=== PATIENT | male | born 1950 | race Caucasian/White ===

== ENCOUNTER → 2018-05-05 08:41 | Outpatient (CLI) | payer MEDICARE, OTHER, SELFPAY ==
[2018-05-11 00:51] LABS: Testosterone Free 133.1 pg/mL (35.0-155.0); Testosterone Total 636 ng/dL (250-1100)
== END ==
PROVIDERS: PCP Family Medicine; Visit Provider Family Medicine
DX: E34.9 Endocrine disorder, unspecified (principal)
CPT/HCPCS: 36415; 84402; 84403

== ENCOUNTER → 2018-05-06 10:06 | Outpatient (CLI) | payer MEDICARE, OTHER, SELFPAY ==
[2018-05-06 11:27] LABS: Hemoglobin A1C% w Est Avg Glu 7.9 % (4.0-6.0)
[2018-05-06 11:42] LABS: BUN Creatinine Ratio 16.9 (6-22); Blood Urea Nitrogen 27 mg/dL (9-20); Calcium 9.7 mg/dL (8.4-10.2); Carbon Dioxide 22 mmol/L (22-32); Chloride 108 mmol/L (98-107); Estimated Glomerular Filt Rate 43.6 mL/min (>60); Glucose 118 mg/dL (80-110); HEMOLYSIS < 15 (0-50); Potassium 4.9 mmol/L (3.4-5.1); Sodium 142 mmol/L (137-145)
== END ==
PROVIDERS: PCP Family Medicine; Visit Provider Family Medicine
DX: E34.9 Endocrine disorder, unspecified (principal); E11.9 Type 2 diabetes mellitus without complications
CPT/HCPCS: 80048; 83036

== ENCOUNTER → 2018-09-22 09:08 | Outpatient (CLI) | payer MEDICARE, OTHER, SELFPAY | PROVIDERS: PCP Family Medicine; Visit Provider Family Medicine | DX: R31.9 Hematuria, unspecified (principal) | CPT/HCPCS: 87086 ==

== ENCOUNTER → 2018-09-22 09:59 | Outpatient (CLI) | payer MEDICARE, OTHER, SELFPAY ==
--- NOTE | 2018-09-22 10:17 | DI.CT.S_ITS ---
PROCEDURE: CT KIDNEY URETER BLADDER (KUB) INDICATIONS: A 67-year old man with history of right nephrectomy and partial left nephrectomy. Unable to urinate for 36 hours. Complaints of penile pain. TECHNIQUE: Noncontrast 5 mm thick sections acquired from the diaphragms to the symphysis. 5 mm thick coronal and sagittal reformats were then performed. For radiation dose reduction, the following was used: automated exposure control, adjustment of mA and/or kV according to patient size. COMPARISON: [facility], US, RETROPERITONEAL SONOGRAM, 12/23/2011, 14:26. [facility], US, US RENAL, 07/05/2016, 16:11. [facility], US, RENAL COMPLETE, 02/04/2008, 12:50. [facility], CT THORAX/ABD/PELVIS W/O CONTRAST, 06/22/2006, 13:18. [facility], MRI ABDOMEN W/W/O CONTRAST, 05/15/2006, 13:47. [facility], CT ABDOMEN/PELVIS WITHOUT CONTRAST, 06/24/2006, 11:37. FINDINGS: Image quality: Excellent. Lung bases: Lung bases are clear. Heart size is normal. Urinary system: Right kidney is surgically absent consistent with nephrectomy. Left kidney is normal in size. No renal stones were hydronephrosis. There is a 1.4 cm diameter exophytic lobular contour in the inferior pole of the left kidney. Mild left perinephric standing is present. The left ureter appears non-dilated throughout their expected courses. No left ureter stone. Bladder wall appears thickened although bladder is contracted; no calcified bladder stones. There is calcification in the penile urethra. Other solid organs: Liver is normal in size. Gallbladder is normal. Pancreas is normal in contours. Spleen is normal in size. There is a 1.1 x 1.7 cm right adrenal nodule with a CT density 8.5 HU, compatible with a benign adenoma. Peritoneum and bowel: Unenhanced bowel loops demonstrate normal wall thickness and caliber. No free fluid or air. Nodes and vessels: No retroperitoneal or mesenteric adenopathy by size criteria. Aorta and inferior vena cava are normal in caliber. Abdominal wall: No ventral hernias. Pelvis: No free pelvic fluid. No inguinal adenopathy. Fat containing inguinal hernias are noted bilaterally. Bones: No suspicious bony lesions. No vertebral body compression fractures. IMPRESSION: 1. Right nephrectomy. 2. A 1.4 cm exophytic lobular contour involving the interpole of the left kidney. The patient had partial nephrectomy in the area in 2005. Differential diagnoses include scar, complex cysts or recurrent mass. Followup renal ultrasound or MRI is suggested. 3. No renal stone or hydronephrosis. 4. Appearance of bladder wall thickening with contracted urinary bladder. Differential diagnoses include cystitis versus artifact. 5. Calcification in the penile urethra. In this patient with penile pain, urethral stones are suspected. 6. Right adrenal nodule compatible with adrenal adenoma. Dictated by: Luz Allen M.D. on 09/22/2018 at 10:45 Approved by: Luz Allen M.D. on 09/22/2018 at 11:08
== END ==
PROVIDERS: PCP Family Medicine; Visit Provider Family Medicine
DX: N48.89 Other specified disorders of penis (principal); R31.9 Hematuria, unspecified; E27.9 Disorder of adrenal gland, unspecified; Z90.5 Acquired absence of kidney
CPT/HCPCS: 74176; 87077; 87086; 87186

== ENCOUNTER → 2018-10-07 08:17 | Outpatient (CLI) | payer MEDICARE, OTHER, SELFPAY ==
[2018-10-07 08:21] LABS: RBC Urine None Seen (0-5/HPF); WBC Urine None Seen (0-5/HPF)
[2018-10-07 08:59] LABS: Appearance Urine UA CLEAR; Bilirubin Urine UA NEGATIVE (NEGATIVE); Color Urine UA YELLOW; Glucose Urine UA NEGATIVE (Normal); Ketones Urine UA NEGATIVE (NEGATIVE); Leukocyte Esterase Urine UA NEGATIVE (NEGATIVE); Nitrite Urine UA NEGATIVE (Negative); Occult Blood Urine UA NEGATIVE (Negative); Protein Urine UA TRACE (Negative); Urobilinogen Urine UA 0.2 E.U./dL (0.2); pH Urine UA 5.5 (4.5-8.0)
[2018-10-07 09:16] LABS: Bacteria Urine Occasional (0-1); Culture Indicated Urine Cult Not Indicated; Mucus Urine 1+ (Negative)
== END ==
PROVIDERS: PCP Family Medicine; Visit Provider Family Medicine
DX: R30.0 Dysuria (principal)
CPT/HCPCS: 81001

== ENCOUNTER → 2019-01-19 08:16 | Outpatient (CLI) | payer MEDICARE, OTHER, SELFPAY ==
[2019-01-19 09:12] LABS: Add Manual Diff / Slide Review NO; Basophils Absolute Auto 100 /uL (0-100); Eosinophils Absolute Auto 200 /uL (0-450); Hematocrit 47.6 % (41-53); Hemoglobin 15.9 g/dL (13.5-17.5); Lymphocytes Absolute Auto 1500 /uL (1100-4500); Lymphocytes Percent Auto 28.5 % (25-40); Mean Corpuscular HGB Conc 33.3 % (30-36); Mean Corpuscular Hemoglobin 29.3 PG (26-34); Mean Corpuscular Volume 87.9 fL (80-100); Monocytes Absolute Auto 300 /uL (0-900); Monocytes Percent Auto 6.5 % (3-14); Neutrophils Absolute Auto 3200 /uL (1500-7000); Platelet Count 208 X10^3/uL (150-400); Red Blood Cell Count 5.42 X10^6/uL (4.5-5.9); Red Cell Distribution Width 14.8 % (11.6-14.8); White Blood Cell Count 5.3 X10^3/uL (4.5-11.0)
[2019-01-19 09:38] LABS: Alanine Aminotransferase 31 IU/L (21-72); Albumin 4.4 g/dL (3.5-5.0); Albumin Globulin Ratio 1.3 (1.0-2.8); Alkaline Phosphatase 88 U/L (38-126); Aspartate Aminotransferase 24 IU/L (17-59); BUN Creatinine Ratio 22.4 (6-22); Bilirubin Total 0.5 mg/dL (0.2-1.3); Blood Urea Nitrogen 38 mg/dL (9-20); Calcium 9.4 mg/dL (8.4-10.2); Carbon Dioxide 20 mmol/L (22-32); Chloride 111 mmol/L (98-107); Cholesterol 216 mg/dL (140-199); Estimated Glomerular Filt Rate 40.5 mL/min (>60); Globulin 3.3 g/dL (1.7-4.1); Glucose 107 mg/dL (80-110); HDL Cholesterol 33 mg/dL (40-60); HEMOLYSIS < 15 (0-50); LDL Cholesterol Calculated 157 mg/dL (<100); Potassium 4.6 mmol/L (3.4-5.1); Sodium 141 mmol/L (137-145); Total Protein 7.7 g/dL (6.3-8.2); Triglycerides 128 mg/dL (35-150)
[2019-01-19 09:49] LABS: Hemoglobin A1C% w Est Avg Glu 8.6 % (4.0-6.0)
[2019-01-19 09:58] LABS: Creatinine Urine Random 69.1 mg/dL
[2019-01-19 10:02] LABS: Microalbumi Creatinin Ratio Ur 150.5 ug/mg CR (<30); Microalbumin Urine Random 10.4 mg/dL (0-1.6)
[2019-01-19 10:30] LABS: Thyroid Stimulating Hormone 2.12 uIU/mL (0.47-4.68)
== END ==
PROVIDERS: PCP Family Medicine; Visit Provider Family Medicine
DX: E11.9 Type 2 diabetes mellitus without complications (principal); E78.2 Mixed hyperlipidemia; I10 Essential (primary) hypertension; N19 Unspecified kidney failure; Z12.5 Encounter for screening for malignant neoplasm of prostate; Z68.38 Body mass index [BMI] 38.0-38.9, adult
CPT/HCPCS: 36415; 80053; 80061; 82043; 82570; 83036; 84443; 85025; G0103

== ENCOUNTER → 2019-02-17 08:14 | Outpatient (CLI) | payer MEDICARE, OTHER, SELFPAY ==
[2019-02-17 09:02] LABS: Hemoglobin A1C% w Est Avg Glu 8.2 % (4.0-6.0)
[2019-02-17 09:54] LABS: Blood Urea Nitrogen 24 mg/dL (9-20); Calcium 8.9 mg/dL (8.4-10.2); Carbon Dioxide 22 mmol/L (22-32); Chloride 109 mmol/L (98-107); Estimated Glomerular Filt Rate 43.5 mL/min (>60); Glucose 131 mg/dL (80-110); HEMOLYSIS < 15 (0-50); Potassium 4.1 mmol/L (3.4-5.1); Sodium 141 mmol/L (137-145)
[2019-02-20 15:46] LABS: PSA Free % 25 % (calc) (> 25); PSA, Total 1.2 ng/mL (< 4.1)
== END ==
PROVIDERS: PCP Family Medicine; Visit Provider Family Medicine
DX: E11.9 Type 2 diabetes mellitus without complications (principal); Z12.5 Encounter for screening for malignant neoplasm of prostate
CPT/HCPCS: 36415; 80048; 83036; 84153; 84154

== ENCOUNTER → 2019-02-25 10:23 | Outpatient (CLI) | payer MEDICARE, OTHER, SELFPAY ==
--- NOTE | 2019-02-25 10:26 | DI.US.S_ITS ---
PROCEDURE: US RENAL COMPLETE INDICATIONS: RENAL MASS TECHNIQUE: Real-time scanning was performed of the kidneys and bladder, with image documentation. COMPARISON: [facility], US, ABDOMEN COMPLETE, 08/15/2010, 9:03. [facility], CT, CT KIDNEY URETER BLADDER (KUB), 09/22/2018, 10:03. [facility], US, RENAL COMPLETE, 09/19/2009, 9:22. FINDINGS: Kidneys: The right kidney is surgically absent. No abnormalities can be seen within the renal fossa. The left kidney measures 11.8 cm in length, with a cortical thickness measurement of 1.7 cm. No hydronephrosis or renal stones are seen. The left kidney demonstrates a slightly irregular contour. At the superior pole of the left kidney, there is a 2.9 cm area of focal prominence with decreased echogenicity, with normal vascularity. At the inferior pole of the left kidney, there is an exophytic focus measuring 16 mm with calcification. No abnormal vascularity can be seen at this site. Bladder: Pre-void bladder volume is 159 mL. Post-void residual is 18 mL. Pre-void images demonstrate no intraluminal masses or stones. On pre-void images, the left ureteral jet can be seen with color Doppler interrogation. (Of note, ureteral jets may not be detectable in up to 25% of cases due to insufficient differences in specific gravity between ureteral and bladder urine). Miscellaneous: No free pelvic fluid. IMPRESSION: At the superior pole the left kidney, there is a 2.9 cm irregular area. This may be simply secondary to lobulation. However, please consider a dedicated renal mass protocol CT in this patient with this history. At the inferior pole of the left kidney, there is focal irregularity seen with calcification. This is felt most likely to be postsurgical in nature. Status post right nephrectomy. No abnormalities can be seen in the nephrectomy bed. Small postvoid residual, 18 cc. Dictated by: Quincy Gregory M.D. on 02/25/2019 at 11:46 Approved by: Quincy Gregory M.D. on 02/25/2019 at 11:50
== END ==
PROVIDERS: PCP Family Medicine; Visit Provider Family Medicine
DX: N28.89 Other specified disorders of kidney and ureter (principal); Z90.5 Acquired absence of kidney
CPT/HCPCS: 76770

== ENCOUNTER → 2019-08-18 08:07 | Outpatient (CLI) | payer MEDICARE, OTHER, SELFPAY ==
[2019-08-18 08:54] LABS: Hemoglobin A1C% w Est Avg Glu 9.1 % (4.0-6.0)
[2019-08-18 09:34] LABS: BUN Creatinine Ratio 13.9 (6-22); Blood Urea Nitrogen 25 mg/dL (9-20); Calcium 9.4 mg/dL (8.4-10.2); Carbon Dioxide 22 mmol/L (22-32); Chloride 106 mmol/L (98-107); Estimated Glomerular Filt Rate 37.9 mL/min (>60); Glucose 304 mg/dL (80-110); HEMOLYSIS < 15 (0-50); Potassium 4.3 mmol/L (3.4-5.1); Sodium 140 mmol/L (137-145)
== END ==
PROVIDERS: PCP Family Medicine; Visit Provider Family Medicine
DX: E11.9 Type 2 diabetes mellitus without complications (principal)
CPT/HCPCS: 36415; 80048; 83036

== ENCOUNTER → 2019-11-23 08:11 | Outpatient (CLI) | payer MEDICARE, OTHER, SELFPAY ==
[2019-11-23 08:49] LABS: BUN Creatinine Ratio 17.6 (6-22); Blood Urea Nitrogen 37 mg/dL (9-20); Calcium 8.8 mg/dL (8.4-10.2); Carbon Dioxide 18 mmol/L (22-32); Chloride 112 mmol/L (98-107); Estimated Glomerular Filt Rate 31.8 mL/min (>60); Glucose 107 mg/dL (80-110); HEMOLYSIS 15 (0-50); Potassium 4.9 mmol/L (3.4-5.1); Sodium 140 mmol/L (137-145)
== END ==
PROVIDERS: PCP Family Medicine; Visit Provider Family Medicine
DX: E11.9 Type 2 diabetes mellitus without complications (principal)
CPT/HCPCS: 36415; 80048; 83036

== ENCOUNTER → 2019-12-17 07:48 | Outpatient (CLI) | payer MEDICARE, OTHER, SELFPAY ==
[2019-12-21 11:11] LABS: Testosterone Total 505 ng/dL (250-1100)
== END ==
PROVIDERS: PCP Family Medicine; Visit Provider Nurse Practitioner
DX: E29.1 Testicular hypofunction (principal)
CPT/HCPCS: 36415; 84402; 84403

== ENCOUNTER → 2020-01-20 08:18 | Outpatient (CLI) | payer MEDICARE, OTHER, SELFPAY ==
[2020-01-20 09:00] LABS: Hemoglobin A1C% w Est Avg Glu 8.5 % (4.0-6.0)
[2020-01-20 09:20] LABS: BUN Creatinine Ratio 16.3 (6-22); Blood Urea Nitrogen 31 mg/dL (9-20); Calcium 9.1 mg/dL (8.4-10.2); Carbon Dioxide 22 mmol/L (22-32); Chloride 113 mmol/L (98-107); Estimated Glomerular Filt Rate 35.5 mL/min (>60); Glucose 104 mg/dL (80-110); HEMOLYSIS < 15 (0-50); Potassium 4.9 mmol/L (3.4-5.1); Sodium 141 mmol/L (137-145)
== END ==
PROVIDERS: PCP Family Medicine; Referring Provider Family Medicine; Visit Provider Family Medicine
DX: N19 Unspecified kidney failure (principal); E11.9 Type 2 diabetes mellitus without complications; Z68.38 Body mass index [BMI] 38.0-38.9, adult
CPT/HCPCS: 36415; 80048; 83036

== ENCOUNTER → 2020-04-19 07:46 | Outpatient (CLI) | payer MEDICARE, OTHER, SELFPAY ==
[2020-04-19 08:06] LABS: RBC Urine None Seen (0-5/HPF); WBC Urine None Seen (0-5/HPF)
[2020-04-19 09:07] LABS: Appearance Urine UA CLEAR; Bilirubin Urine UA NEGATIVE (NEGATIVE); Color Urine UA YELLOW; Glucose Urine UA NEGATIVE (Negative); Ketones Urine UA NEGATIVE (NEGATIVE); Leukocyte Esterase Urine UA NEGATIVE (NEGATIVE); Nitrite Urine UA NEGATIVE (Negative); Occult Blood Urine UA TRACE-INTACT (Negative); Protein Urine UA 1+ (Negative); Specific Gravity Urine UA 1.015 (1.000-1.035); Urobilinogen Urine UA 0.2 E.U./dL (0.2); pH Urine UA 5.5 (4.5-8.0)
[2020-04-19 09:17] LABS: Hemoglobin A1C% w Est Avg Glu 8.6 % (4.0-6.0)
[2020-04-19 09:18] LABS: BUN Creatinine Ratio 13.2 (6-22); Bacteria Urine Occasional (0-1); Blood Urea Nitrogen 25 mg/dL (9-20); Calcium 9.5 mg/dL (8.4-10.2); Carbon Dioxide 19 mmol/L (22-32); Chloride 110 mmol/L (98-107); Culture Indicated Urine Cult Not Indicated; Estimated Glomerular Filt Rate 35.8 mL/min (>60); Glucose 135 mg/dL (80-110); HEMOLYSIS < 15 (0-50); Potassium 4.9 mmol/L (3.4-5.1); Sodium 140 mmol/L (137-145); Squamous Epithelial Cell Urine 0-1 /HPF (0-5/HPF)
[2020-04-19 09:31] LABS: Add Manual Diff / Slide Review NO; Basophils Absolute Auto 100 /uL (0-100); Eosinophils Absolute Auto 100 /uL (0-450); Eosinophils Percent Auto 2.3 % (2-4); Hematocrit 49.1 % (41-53); Hemoglobin 16.6 g/dL (13.5-17.5); Lymphocytes Absolute Auto 1500 /uL (1100-4500); Lymphocytes Percent Auto 25.3 % (25-40); Mean Corpuscular HGB Conc 33.7 % (30-36); Mean Corpuscular Hemoglobin 30.3 PG (26-34); Mean Corpuscular Volume 89.8 fL (80-100); Monocytes Absolute Auto 300 /uL (0-900); Monocytes Percent Auto 5.8 % (3-14); Neutrophils Absolute Auto 3900 /uL (1500-7000); Neutrophils Percent Auto 65.6 % (50-75); Platelet Count 211 X10^3/uL (150-400); Red Blood Cell Count 5.46 X10^6/uL (4.5-5.9); Red Cell Distribution Width 14.6 % (11.6-14.8)
[2020-04-19 09:39] LABS: Creatinine Urine Random 85.5 mg/dL
[2020-04-19 09:40] LABS: Magnesium 1.9 mg/dL (1.6-2.3); Phosphorous 3.3 mg/dL (2.3-3.7); Uric Acid 7.6 mg/dL (3.5-8.5)
[2020-04-19 09:54] LABS: Vitamin D 25 Hydroxy (D3) 28.4 ng/mL (30.0-100.0)
[2020-04-19 10:13] LABS: Microalbumi Creatinin Ratio Ur 397.6 ug/mg CR (<30)
[2020-04-20 07:08] LABS: Parathyroid Hormone Int 52 pg/mL (15-65)
== END ==
PROVIDERS: PCP Family Medicine; Referring Provider Internal Medicine Nephrology; Visit Provider Internal Medicine Nephrology
DX: N18.3 Chronic kidney disease, stage 3 (moderate) (principal); D63.1 Anemia in chronic kidney disease; E83.41 Hypermagnesemia; E83.9 Disorder of mineral metabolism, unspecified; N39.0 Urinary tract infection, site not specified; E11.9 Type 2 diabetes mellitus without complications
CPT/HCPCS: 36415; 80048; 81001; 82043; 82306; 82570; 83036; 83735; 83970; 84100; 84550; 85025

== ENCOUNTER → 2020-07-04 07:32 | Outpatient (CLI) | payer MEDICARE, OTHER, SELFPAY ==
[2020-07-04 16:29] LABS: BUN Creatinine Ratio 16.6 (6-22); Blood Urea Nitrogen 35 mg/dL (9-20); Calcium 9.1 mg/dL (8.4-10.2); Carbon Dioxide 18 mmol/L (22-32); Chloride 109 mmol/L (98-107); Estimated Glomerular Filt Rate 31.5 mL/min (>60); Glucose 294 mg/dL (80-110); HEMOLYSIS < 15 (0-50); Phosphorous 4.2 mg/dL (2.3-3.7); Sodium 137 mmol/L (137-145); Uric Acid 8.4 mg/dL (3.5-8.5)
[2020-07-04 16:55] LABS: Potassium 5.4 mmol/L (3.4-5.1)
[2020-07-04 17:20] LABS: Vitamin D 25 Hydroxy (D3) 41.1 ng/mL (30.0-100.0)
[2020-07-05 07:12] LABS: Parathyroid Hormone Int 85 pg/mL (15-65)
== END ==
PROVIDERS: PCP Family Medicine; Referring Provider Family Medicine; Visit Provider Family Medicine
DX: N18.3 Chronic kidney disease, stage 3 (moderate) (principal); E11.9 Type 2 diabetes mellitus without complications
CPT/HCPCS: 36415; 80048; 82306; 83970; 84100; 84550

== ENCOUNTER 2020-07-11 13:18 | Emergency (ER) | payer MEDICARE, OTHER, SELFPAY ==
[2020-07-11] VITALS (22 sets, daily range): BP systolic 120–205; BP diastolic 56–93; PULSE 67–86; RESP 18–39; TEMP 36.8; O2SAT 96–99
--- NOTE | 2020-07-11 13:32 | DI.CT.S_ITS ---
PROCEDURE: CT HEAD/BRAIN WO CON INDICATIONS: right sided weakness TECHNIQUE: Noncontrast 4.5 mm thick angled axial sections acquired from the foramen magnum to the vertex, with coronal and sagittal reformats. For radiation dose reduction, the following was used: automated exposure control, adjustment of mA and/or kV according to patient size. COMPARISON: [facility], CT, HEAD WITHOUT CONTRAST, 08/24/2010, 15:01. FINDINGS: Image quality: Excellent. CSF spaces: Basal cisterns are patent. No extra-axial fluid collections. The ventricles are symmetric in size and shape. Brain: No intracranial bleeds hypodensity involving the left occipital lobe measuring approximately 4.0 x 2.8 cm, suspicious for acute ischemia although cannot exclude underlying mass lesion with vasogenic edema There is cerebral volume loss for age, with resultant ventricular and sulcal prominence. There are periventricular and deep white matter chronic small vessel ischemic changes. There is intracranial internal carotid artery atherosclerosis. Skull and face: Calvarium and visualized facial bones appear intact, without suspicious lesions. Sinuses: Visualized sinuses and mastoids are clear. IMPRESSION: New area of hypoattenuation involving the left occipital lobe presumably acute ischemia although recommend follow up with head CT or MRI after the patient's acute episode has resolved to exclude underlying mass lesion as discussed above. Dictated by: Marky Arroyo M.D. on 07/11/2020 at 14:12 Approved by: Marky Arroyo M.D. on 07/11/2020 at 14:15
--- NOTE | 2020-07-11 13:32 | DI.RAD.S_ITS ---
PROCEDURE: XR CHEST 1V INDICATIONS: Possible stroke TECHNIQUE: One view of the chest was acquired. COMPARISON: [facility], , CHEST 1 VIEW, 01/27/2011, 15:20. FINDINGS: Surgical changes and devices: None. Lungs and pleura: Lungs are clear. No pleural effusions or pneumothorax. Mediastinum: Mediastinal contours appear normal. Heart size is normal. Bones and chest wall: No suspicious bony lesions. Overlying soft tissues appear unremarkable. IMPRESSION: No acute disease Dictated by: Marky Arroyo M.D. on 07/11/2020 at 14:15 Approved by: Marky Arrooy M.D. on 07/11/2020 at 14:16
[2020-07-11 13:53] LABS: Add Manual Diff / Slide Review NO; Basophils Absolute Auto 100 /uL (0-100); Basophils Percent Auto 0.7 % (0-2); Eosinophils Absolute Auto 0 /uL (0-450); Eosinophils Percent Auto 0.4 % (2-4); Hematocrit 44.3 % (41-53); Hemoglobin 14.7 g/dL (13.5-17.5); Lymphocytes Absolute Auto 1000 /uL (1100-4500); Lymphocytes Percent Auto 10.7 % (25-40); Mean Corpuscular HGB Conc 33.1 % (30-36); Mean Corpuscular Hemoglobin 29.9 PG (26-34); Mean Corpuscular Volume 90.2 fL (80-100); Monocytes Absolute Auto 400 /uL (0-900); Monocytes Percent Auto 4.3 % (3-14); Neutrophils Absolute Auto 7600 /uL (1500-7000); Neutrophils Percent Auto 83.9 % (50-75); Platelet Count 210 X10^3/uL (150-400); Red Blood Cell Count 4.91 X10^6/uL (4.5-5.9); Red Cell Distribution Width 15.1 % (11.6-14.8); White Blood Cell Count 9.1 X10^3/uL (4.5-11.0)
[2020-07-11 13:59] LABS: INR 1.1 (0.9-1.3); Prothrombin Time 12.2 SECONDS (10.1-12.7)
[2020-07-11 14:01] LABS: PTT Partial Thromboplastin Tim 39 SECONDS (26.4-36.2)
[2020-07-11 14:03] LABS: Alanine Aminotransferase 15 IU/L (<50); Albumin 3.9 g/dL (3.5-5.0); Albumin Globulin Ratio 1.3 (1.0-2.8); Alkaline Phosphatase 90 U/L (38-126); Aspartate Aminotransferase 18 IU/L (17-59); BUN Creatinine Ratio 17.7 (6-22); Bilirubin Total 0.7 mg/dL (0.2-1.3); Blood Urea Nitrogen 41 mg/dL (9-20); Calcium 8.5 mg/dL (8.4-10.2); Carbon Dioxide 14 mmol/L (22-32); Chloride 108 mmol/L (98-107); Creatine Kinase 111 U/L (55-170); Estimated Glomerular Filt Rate 28.4 mL/min (>60); Glucose 351 mg/dL (80-110); HEMOLYSIS 24 (0-50); Sodium 133 mmol/L (137-145); Total Protein 6.9 g/dL (6.3-8.2)
--- NOTE | 2020-07-11 14:06 | PC.NURSE ---
Pt states 07/10 around 2330 started to get R arm numbess and tingling and R eye blurriness. Pt diabetic and thought sugar was low and had something to eat and went to bed. 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 son states speech is at baseline. pt complains of R eye blurriness that is better when squinting which is his only sx that has not resolved since last night. passed swallow.
[2020-07-11 14:14] LABS: Troponin I < 0.012 ng/mL (0.01-0.034)
[2020-07-11 14:18] LABS: CKMB % Relative Index 1.2 % (1.5-5.0); Creatine Kinase MB 1.32 ng/mL (<2.37)
[2020-07-11 14:23] LABS: Potassium 5.6 mmol/L (3.4-5.1)
--- NOTE | 2020-07-11 15:30 | ED_ITS ---
HPI - Neuro Symptoms/Deficit <Maikel Frankel MD - Last Filed: 07/12/20 17:38> General Chief Complaint: Neuro Symptoms/Deficit Stated Complaint: DIZZY,LAST NIGHT RIGHT SIDE BODY WENT NUMB Time Seen by Provider: 07/11/20 13:59 Source: patient and family Mode of arrival: Ambulatory History of Present Illness HPI Narrative: Patient here with son. Complains of an onset 11:30 p.m. last night of right-sided tingling which has resolved. Had dizziness which is improving. However also had blurry vision in the right eye. No slurred speech or facial droop. Patient unable to see right temporal field of the right eye. Patient has history of renal cancer. Right kidney removed in the has half of his left kidney. Patient has history of diabetes and high blood pressure. father with history of stroke On Anticoagulants: No Related Data Previous Rx's Medication Instructions Recorded Glucose: Home Monitor units #1 02/25/17 Syringes: 1cc Insulin Syringes syr SEE INSTRUCTIONS #450 12/29/17 with [place] [INSULIN PEN NEEDLES] SQ 5XD #450 12/31/17 losartan 50 mg tablet 50 mg PO QDAY #90 tab 01/25/19 gemfibrozil 600 mg PO BIDAC #180 tab 01/27/19 tamsulosin [Flomax] 0.4 mg PO QDAY #90 cap 02/25/19 insulin glargine 100 unit/mL (3 50 unit SUBCUT DAILY #15 ml 12/12/19 mL) subcutaneous pen insulin lispro 100 unit/mL See Rx Instructions SUBCUT TIDAC 01/21/20 subcutaneous cartridge #15 ml lisinopril 2.5 mg tablet 2.5 mg PO QDAY #90 tab 03/20/20 blood sugar diagnostic See Rx Instructions .ROUTE 04/05/20 .COMPLEX #100 strip bupropion HCl 150 mg tablet,12 hr See Rx Instructions .ROUTE 05/18/20 sustained-release .COMPLEX #60 tablet testosterone cypionate 100 mg/mL 150 mg IM EVERY 2 WEEKS #4 vial 05/19/20 intramuscular oil Allergies Allergy/AdvReac Type Severity Reaction Status Date / Time No Known Drug Allergies Allergy Unknown Verified 07/12/20 09:36 [NO KNOWN DRUG ALLERGIES] Review of Systems <Maikel Frankel MD - Last Filed: 07/12/20 17:38> Review of Systems Narrative: GENERAL: Denies chills, fatigue, malaise, fever, sweats. HEENT: Denies sinus pain, ear pain, sore throat, difficulty swallowing, dizziness. RESPIRATORY: Denies dyspnea, cough, wheezing, hemoptysis, sputum. CARDIOVASCULAR: Denies chest pain, palpitations, orthopnea, edema, GASTROINTESTINAL: Denies nausea, vomiting, abdominal pain, diarrhea, constipation, melena. : Denies dysuria, frequency, incontinence, hematuria, urinary retention. MUSCULOSKELETAL: denies weakness, joint pain, or bony pain SKIN: Denies rash, skin lesions, or other NEUROLOGIC: Denies weakness, headache, change in speech, confusion, seizures, incoordination. complains of right eye vision loss, complains of numbness to the right side of the body PSYCHIATRIC: No concerning psychosocial issues. ROS Unobtainable: All systems reviewed & are unremarkable except as noted in HPI and below Patient History <Maikel Frankel MD - Last Filed: 07/12/20 17:38> Social History marital status: number of children: 4 household members: children lives independently: Yes caregiver/support person: No housing: house pets and animals: Yes education level: high school occupational status: employed current occupational exposures/hazards: Yes augie/oriental orthodox: [employer] special augie needs: No travel history: over 6 months ago leisure activities: exercise and other Smoking Status: Former smoker Tobacco: How many years used: 25 Smokeless tobacco user: chewing tobacco and other quit status: quit date established second hand exposure: No alcohol intake: current substance use type: does not use Smoking Status: Former smoker alcohol intake frequency: holidays/special occasions only Exam <Maikel Frankel MD - Last Filed: 07/12/20 17:38> Narrative Exam Narrative: GENERAL: patient appears stated age. Well-nourished, well- developed patient, in no distress, not toxic HEAD: Atraumatic. Normocephalic. EYES: Pupils equal round and reactive. Extraocular motions intact. No scleral icterus. No injection or drainage. ENT: Nose without bleeding, purulent drainage. Throat without erythema, tonsillar hypertrophy or exudate. Airway patent. NECK: Trachea midline. Non tender CARDIOVASCULAR: Regular rate and rhythm without murmurs, gallops, or rubs. RESPIRATORY: Clear to auscultation. Breath sounds equal bilaterally. No wheezes, rales, or rhonchi. GASTROINTESTINAL: Abdomen soft, non-tender, nondistended. EXTREMITIES: No edema or joint tenderness. BACK: Nontender without deformity or crepitance. No flank tenderness. NEURO: Clear speech no facial droop steady self gait no foot drop. Light touch intact to bilateral face hands and feet. Strong equal services tech bilaterally a nd ankle flexion hip flexion and knee flexion. Strong bilateral patellar reflexes. Steady Romberg, negative pronator drift SKIN: No rash or erythema of visible areas PSYCH: Not anxious, is cooperative Initial Vital Signs Initial Vital Signs: Vital Signs Temperature 98.3 F 07/11/20 13:25 Pulse Rate 83 07/11/20 13:25 Respiratory Rate 18 07/11/20 13:25 Blood Pressure 143/66 H 07/11/20 13:25 Pulse Oximetry 96 07/11/20 13:25 <Abram Heller DO - Last Filed: 07/11/20 21:53> Initial Vital Signs Initial Vital Signs: Vital Signs Temperature 98.3 F 07/11/20 13:25 Pulse Rate 83 07/11/20 13:25 Respiratory Rate 18 07/11/20 13:25 Blood Pressure 143/66 H 07/11/20 13:25 Pulse Oximetry 96 07/11/20 13:25 Scores <Maikel Frankel MD - Last Filed: 07/12/20 17:38> NIH Stroke Scale Level of Conciousness: Alert, keenly responsive Ask month/age: Answers both questions correctly. Open/close eyes, close hand: Performs both tasks correctly Best gaze horizontal: Normal Visual parker: Partial hemianopia (Patient has deficit in the right eye with the temporal field. However left eye is intact temporal and nasal field) Facial palsy: Normal symetrical movement Left arm drift: No drift for full 10 sec Right arm drift: No drift for full 10 sec Left leg drift: No drift for full 10 sec Right leg drift: No drift for full 10 sec Limb ataxia: Absent Sensory on face/arms/legs: Normal, no sensory loss Best language: No aphasia, normal Dysarthria: Normal Extinction or inattention: No abnormality Total NIH Stroke scale score: 1 Course <Maikel Frankel MD - Last Filed: 07/12/20 17:38> Course Course Narrative: Patient at this time only complains of slight blurry vision and slight dizziness. No other complaints. No numbness tingling or weakness on the right side. Decision to Admit Date: 07/11/20 Orders Ordered: Discontinued Medications Aspirin (Aspirin) 325 mg PO NOW ONE Stop: 07/11/20 15:17 Last Admin: 07/11/20 16:17 Dose: Not Given Documented by: DENISE Aspirin (Aspirin Chew) 324 mg PO NOW ONE Stop: 07/11/20 15:48 Last Admin: 07/11/20 16:03 Dose: 324 mg Documented by: DENISE Sodium Chloride (Normal Saline 0.9%) 1,000 mls @ 1,000 mls/hr IV BOLUS ONE Stop: 07/11/20 16:15 Last Infusion: 07/11/20 18:03 Dose: 0 mls/hr Documented by: Admin: 07/11/20 16:03 Dose: 1,000 mls/hr Documented by: DENISE Reevaluation(s) Reevaluation #1: Edema no new complaints no changes. Time: 18:16 Consultations Consultation #1: Spoke with [facility] stroke doctor dr olea, no no tPA at this time. Patient is outside the window. Onset 11:30 p.m. last night 15 hours ago. At this time no endovascular transfer as needed CTA or MRA Time: 15:11 Consultation #2: I spoke with stroke doctor again informing that patient requested to have open field MRI as he is very claustrophobic and at this time he agrees patient can be transferred to [facility] in [place], as they may have larger MRI to accommodate. Time: 16:01 Consultation #3: Spoke with hospitalist at [facility] Dr. Martinez, she states that they do not have open field MRI to accommodate and closest is in [place] Time: 17:31 Additional Consultation(s): Time 5:[address] Crespo our hospitalist the patient now agrees to stay here and would require anxiolytics for MRI in the morning. She states she would like to see repeat electrolytes and renal fu nction before patient being admitted Time 6:22 p.m., spoke with Dr. Heller, awaiting BMP results, Dr. Crespo to be contacted for results Vital Signs Vital signs: Vital Signs - 8 hr 07/11/20 14:02 07/11/20 14:30 07/11/20 15:00 Pulse Rate 75 68 69 Respiratory Rate 21 23 Blood Pressure 131/69 144/70 H Pulse Oximetry 97 98 99 07/11/20 15:01 07/11/20 15:30 07/11/20 15:31 Pulse Rate 68 73 73 Respiratory Rate 22 19 20 Blood Pressure 140/67 150/66 H Pulse Oximetry 98 07/11/20 16:00 07/11/20 16:30 07/11/20 16:31 Pulse Rate 71 75 72 Respiratory Rate 24 20 21 Blood Pressure 145/67 H 158/70 H Pulse Oximetry 07/11/20 17:00 07/11/20 17:30 07/11/20 18:00 Pulse Rate 72 70 80 Respiratory Rate 21 21 Blood Pressure 144/71 H 147/70 H Pulse Oximetry 07/11/20 18:01 07/11/20 18:30 07/11/20 18:31 Pulse Rate 74 70 73 Respiratory Rate 25 H 19 21 Blood Pressure 120/56 L Pulse Oximetry 07/11/20 18:33 07/11/20 19:00 07/11/20 19:01 Pulse Rate 77 70 70 Respiratory Rate 20 25 H 24 Blood Pressure 149/75 H 142/79 H Pulse Oximetry 98 99 98 07/11/20 19:30 07/11/20 20:00 07/11/20 20:01 Pulse Rate 67 86 83 Respiratory Rate 23 33 H 39 H Blood Pressure 145/72 H 205/93 H Pulse Oximetry 99 <Abram Heller DO - Last Filed: 07/11/20 21:53> Orders Ordered: Discontinued Medications Aspirin (Aspirin) 325 mg PO NOW ONE Stop: 07/11/20 15:17 Last Admin: 07/11/20 16:17 Dose: Not Given Documented by: DENISE Aspirin (Aspirin Chew) 324 mg PO NOW ONE Stop: 07/11/20 15:48 Last Admin: 07/11/20 16:03 Dose: 324 mg Documented by: DENISE Sodium Chloride (Normal Saline 0.9%) 1,000 mls @ 1,000 mls/hr IV BOLUS ONE Stop: 07/11/20 16:15 Last Infusion: 07/11/20 18:03 Dose: 0 mls/hr Documented by: Admin: 07/11/20 16:03 Dose: 1,000 mls/hr Documented by: DENISE Vital Signs Vital signs: Vital Signs - 8 hr 07/11/20 14:02 07/11/20 14:30 07/11/20 15:00 Pulse Rate 75 68 69 Respiratory Rate 21 23 Blood Pressure 131/69 144/70 H Pulse Oximetry 97 98 99 07/11/20 15:01 07/11/20 15:30 07/11/20 15:31 Pulse Rate 68 73 73 Respiratory Rate 22 19 20 Blood Pressure 140/67 150/66 H Pulse Oximetry 98 07/11/20 16:00 07/11/20 16:30 07/11/20 16:31 Pulse Rate 71 75 72 Respiratory Rate 24 20 21 Blood Pressure 145/67 H 158/70 H Pulse Oximetry 07/11/20 17:00 07/11/20 17:30 07/11/20 18:00 Pulse Rate 72 70 80 Respiratory Rate 21 21 Blood Pressure 144/71 H 147/70 H Pulse Oximetry 07/11/20 18:01 07/11/20 18:30 07/11/20 18:31 Pulse Rate 74 70 73 Respiratory Rate 25 H 19 21 Blood Pressure 120/56 L Pulse Oximetry 07/11/20 18:33 07/11/20 19:00 07/11/20 19:01 Pulse Rate 77 70 70 Respiratory Rate 20 25 H 24 Blood Pressure 149/75 H 142/79 H Pulse Oximetry 98 99 98 07/11/20 19:30 07/11/20 20:00 07/11/20 20:01 Pulse Rate 67 86 83 Respiratory Rate 23 33 H 39 H Blood Pressure 145/72 H 205/93 H Pulse Oximetry 99 MDM - Neuro Symptoms/Deficit <Maikel Frankel MD - Last Filed: 07/12/20 17:38> Differential Diagnosis Differential diagnosis: Likely cerebrovascular accident and transient cerebral ischemia Lab Data Attestation: I reviewed the patient's lab results. Result diagrams: 07/11/20 13:46 07/11/20 18:19 Labs: Lab Results 07/11/20 07/11/20 07/11/20 Range/Units 13:46 13:46 13:46 WBC 9.1 (4.5-11.0) X10^3/uL RBC 4.91 (4.5-5.9) X10^6/uL Hgb 14.7 (13.5-17.5) g/dL Hct 44.3 (41-53) % MCV 90.2 (80-100) fL MCH 29.9 (26-34) PG MCHC 33.1 (30-36) % RDW 15.1 H (11.6-14.8) % Plt Count 210 (150-400) X10^3/uL Neut % (Auto) 83.9 H (50-75) % Lymph % (Auto) 10.7 L (25-40) % [place] % (Auto) 4.3 (3-14) % Eos % (Auto) 0.4 L (2-4) % Baso % (Auto) 0.7 (0-2) % Neut # (Auto) 7600 H (8941-4762) /uL Lymph # (Auto) 1000 L (2855-1632) /uL [place] # (Auto) 400 (0-900) /uL Eos # (Auto) 0 (0-450) /uL Baso # (Auto) 100 (0-100) /uL PT 12.2 (10.1-12.7) SECONDS INR 1.1 (0.9-1.3) APTT 39 H (26.4-36.2) SECONDS Sodium 133 L (137-145) mmol/L Potassium 5.6 H (3.4-5.1) mmol/L Chloride 108 H (98-107) mmol/L Carbon Dioxide 14 L (22-32) mmol/L BUN 41 H (9-20) mg/dL Creatinine 2.31 H (0.66-1.25) mg/dL Estimated GFR 28.4 L (>60) mL/min BUN/Creatinine Ratio 17.7 (6-22) Glucose 351 H (80-110) mg/dL Calcium 8.5 (8.4-10.2) mg/dL Total Bilirubin 0.7 (0.2-1.3) mg/dL AST 18 (17-59) IU/L ALT 15 (<50) IU/L Alkaline Phosphatase 90 (38-126) U/L Total Creatine Kinase 111 (55-170) U/L CK-MB (CK-2) 1.32 (<2.37) ng/mL CK-MB (CK-2) Rel Index 1.2 L (1.5-5.0) % Troponin I < 0.012 (0.01-0.034) ng/mL Total Protein 6.9 (6.3-8.2) g/dL Albumin 3.9 (3.5-5.0) g/dL Globulin 3.0 (1.7-4.1) g/dL Albumin/Globulin Ratio 1.3 (1.0-2.8) Urine Color Urine Appearance Urine pH (4.5-8.0) Ur Specific [place] (1.000-1.035) Urine Protein (Negative) Urine Glucose (UA) (Negative) g/dL Urine Ketones (NEGATIVE) Urine Occult Blood (Negative) Urine Nitrate (Negative) Urine Bilirubin (NEGATIVE) Urine Urobilinogen (0.2) E.U./dL Ur Leukocyte Esterase (NEGATIVE) Urine RBC (0-5/HPF) Urine WBC (0-5/HPF) Ur Squamous Epith Cells (0-5/HPF) Urine Bacteria (None) Ur Culture Indicated? U Opiates 300ng/mL cut (Negative) Ur Oxycodone Screen (Negative) Urine Methadone Screen (Negative) Ur Barbiturates Screen (Negative) U Tricyclic Antidepress (Negative) Ur Phencyclidine Scrn (Negative) Ur Amphetamines Screen (Negative) U Methamphetamines Scrn (Negative) Ur MDMA Scrn (Ecstasy) (Negative) U Benzodiazepines Scrn (Negative) Urine Cocaine Screen (Negative) U Marijuana (THC) Screen (Negative) COVID-19 PCR (Negative) 07/11/20 07/11/20 07/11/20 Range/Units 16:00 16:00 17:20 WBC (4.5-11.0) X10^3/uL RBC (4.5-5.9) X10^6/uL Hgb (13.5-17.5) g/dL Hct (41-53) % MCV (80-100) fL MCH (26-34) PG MCHC (30-36) % RDW (11.6-14.8) % Plt Count (150-400) X10^3/uL Neut % (Auto) (50-75) % Lymph % (Auto) (25-40) % [place] % (Auto) (3-14) % Eos % (Auto) (2-4) % Baso % (Auto) (0-2) % Neut # (Auto) (2848-6133) /uL Lymph # (Auto) (0446-8861) /uL [place] # (Auto) (0-900) /uL Eos # (Auto) (0-450) /uL Baso # (Auto) (0-100) /uL PT (10.1-12.7) SECONDS INR (0.9-1.3) APTT (26.4-36.2) SECONDS Sodium (137-145) mmol/L Potassium (3.4-5.1) mmol/L Chloride (98-107) mmol/L Carbon Dioxide (22-32) mmol/L BUN (9-20) mg/dL Creatinine (0.66-1.25) mg/dL Estimated GFR (>60) mL/min BUN/Creatinine Ratio (6-22) Glucose (80-110) mg/dL Calcium (8.4-10.2) mg/dL Total Bilirubin (0.2-1.3) mg/dL AST (17-59) IU/L ALT (<50) IU/L Alkaline Phosphatase (38-126) U/L Total Creatine Kinase (55-170) U/L CK-MB (CK-2) (<2.37) ng/mL CK-MB (CK-2) Rel Index (1.5-5.0) % Troponin I (0.01-0.034) ng/mL Total Protein (6.3-8.2) g/dL Albumin (3.5-5.0) g/dL Globulin (1.7-4.1) g/dL Albumin/Globulin Ratio (1.0-2.8) Urine Color Yellow Urine Appearance Clear Urine pH 5.0 (4.5-8.0) Ur Specific [place] 1.010 (1.000-1.035) Urine Protein Trace H (Negative) Urine Glucose (UA) 2+ H (Negative) g/dL Urine Ketones Negative (NEGATIVE) Urine Occult Blood 3+ H (Negative) Urine Nitrate Negative (Negative) Urine Bilirubin Negative (NEGATIVE) Urine Urobilinogen 0.2 (0.2) E.U./dL Ur Leukocyte Esterase Negative (NEGATIVE) Urine RBC 5-10/hpf H (0-5/HPF) Urine WBC 0-1/hpf (0-5/HPF) Ur Squamous Epith Cells 0-1 /hpf (0-5/HPF) Urine Bacteria None seen (None) Ur Culture Indicated? Cult not indicated U Opiates 300ng/mL cut Negative (Negative) Ur Oxycodone Screen Negative (Negative) Urine Methadone Screen Negative (Negative) Ur Barbiturates Screen Negative (Negative) U Tricyclic Antidepress Negative (Negative) Ur Phencyclidine Scrn Negative (Negative) Ur Amphetamines Screen Negative (Negative) U Methamphetamines Scrn Negative (Negative) Ur MDMA Scrn (Ecstasy) Negative (Negative) U Benzodiazepines Scrn Negative (Negative) Urine Cocaine Screen Negative (Negative) U Marijuana (THC) Screen Negative (Negative) COVID-19 PCR Negative (Negative) 07/11/20 Range/Units 18:19 WBC (4.5-11.0) X10^3/uL RBC (4.5-5.9) X10^6/uL Hgb (13.5-17.5) g/dL Hct (41-53) % MCV (80-100) fL MCH (26-34) PG MCHC (30-36) % RDW (11.6-14.8) % Plt Count (150-400) X10^3/uL Neut % (Auto) (50-75) % Lymph % (Auto) (25-40) % [place] % (Auto) (3-14) % Eos % (Auto) (2-4) % Baso % (Auto) (0-2) % Neut # (Auto) (4483-5362) /uL Lymph # (Auto) (5857-2339) /uL [place] # (Auto) (0-900) /uL Eos # (Auto) (0-450) /uL Baso # (Auto) (0-100) /uL PT (10.1-12.7) SECONDS INR (0.9-1.3) APTT (26.4-36.2) SECONDS Sodium 135 L (137-145) mmol/L Potassium 5.3 H (3.4-5.1) mmol/L Chloride 110 H (98-107) mmol/L Carbon Dioxide 17 L (22-32) mmol/L BUN 39 H (9-20) mg/dL Creatinine 2.18 H (0.66-1.25) mg/dL Estimated GFR 30.3 L (>60) mL/min BUN/Creatinine Ratio 17.9 (6-22) Glucose 218 H D (80-110) mg/dL Calcium 8.2 L (8.4-10.2) mg/dL Total Bilirubin (0.2-1.3) mg/dL AST (17-59) IU/L ALT (<50) IU/L Alkaline Phosphatase (38-126) U/L Total Creatine Kinase (55-170) U/L CK-MB (CK-2) (<2.37) ng/mL CK-MB (CK-2) Rel Index (1.5-5.0) % Troponin I (0.01-0.034) ng/mL Total Protein (6.3-8.2) g/dL Albumin (3.5-5.0) g/dL Globulin (1.7-4.1) g/dL Albumin/Globulin Ratio (1.0-2.8) Urine Color Urine Appearance Urine pH (4.5-8.0) Ur Specific [place] (1.000-1.035) Urine Protein (Negative) Urine Glucose (UA) (Negative) g/dL Urine Ketones (NEGATIVE) Urine Occult Blood (Negative) Urine Nitrate (Negative) Urine Bilirubin (NEGATIVE) Urine Urobilinogen (0.2) E.U./dL Ur Leukocyte Esterase (NEGATIVE) Urine RBC (0-5/HPF) Urine WBC (0-5/HPF) Ur Squamous Epith Cells (0-5/HPF) Urine Bacteria (None) Ur Culture Indicated? U Opiates 300ng/mL cut (Negative) Ur Oxycodone Screen (Negative) Urine Methadone Screen (Negative) Ur Barbiturates Screen (Negative) U Tricyclic Antidepress (Negative) Ur Phencyclidine Scrn (Negative) Ur Amphetamines Screen (Negative) U Methamphetamines Scrn (Negative) Ur MDMA Scrn (Ecstasy) (Negative) U Benzodiazepines Scrn (Negative) Urine Cocaine Screen (Negative) U Marijuana (THC) Screen (Negative) COVID-19 PCR (Negative) Imaging Data CT scan - head: Radiologist's Impression: [address] [address] [address] Scan Report Signed Patient: Estrella Fan JMR#: [id number] : 3Acct:[id number] Age/Sex: 69 / MDate of Service: 07/11/20 Loc: ED Accession Number: [id number] Procedure: CT head/brain wo con Ordering Provider: Maikel Frankel MD PROCEDURE: CT HEAD/BRAIN WO CON INDICATIONS: right sided weakness TECHNIQUE: Noncontrast 4.5 mm thick angled axial sections acquired from the foramen magnum to the vertex, with coronal and sagittal reformats. For radiation dose reduction, the following was used: automated exposure control, adjustment of mA and/or kV according to patient size. COMPARISON: [facility], CT, HEAD WITHOUT CONTRAST, 08/24/2010, 15:01. FINDINGS: Image quality: Excellent. CSF spaces: Basal cisterns are patent. No extra-axial fluid collections. The ventricles are symmetric in size and shape. Brain: No intracranial bleeds hypodensity involving the left occipital lobe measuring approximately 4.0 x 2.8 cm, suspicious for acute ischemia although cannot exclude underlying mass lesion with vasogenic edema There is cerebral volume loss for age, with resultant ventricular and sulcal prominence. There are periventricular and deep white matter chronic small vessel ischemic changes. There is intracranial internal carotid artery atherosclerosis. Skull and face: Calvarium and visualized facial bones appear intact, without suspicious lesions. Sinuses: Visualized sinuses and mastoids are clear. IMPRESSION: New area of hypoattenuation involving the left occipital lobe presumably acute ischemia although recommend follow up with head CT or MRI after the patient's acute episode has resolved to exclude underlying mass lesion as discussed above. Dictated by: Marky Arroyo M.D. on 07/11/2020 at 14:12 Approved by: Marky Arroyo M.D. on 07/11/2020 at 14:15 Chest x-ray: Radiologist's Impression: [address] [address] XRay Report Signed Patient: Estrella Fan JMR#: [id number] : 3Acct:[id number] Age/Sex: 69 / MDate of Service: 07/11/20 Loc: ED Accession Number: [id number] Procedure: XR chest 1V Ordering Provider: Maikel Frankel MD PROCEDURE: XR CHEST 1V INDICATIONS: Possible stroke TECHNIQUE: One view of the chest was acquired. COMPARISON: [facility], , CHEST 1 VIEW, 01/27/2011, 15:20. FINDINGS: Surgical changes and devices: None. Lungs and pleura: Lungs are clear. No pleural effusions or pneumothorax. Mediastinum: Mediastinal contours appear normal. Heart size is normal. Bones and chest wall: No suspicious bony lesions. Overlying soft tissues appear unremarkable. IMPRESSION: No acute disease Dictated by: Marky Arroyo M.D. on 07/11/2020 at 14:15 Approved by: Marky Arroyo M.D. on 07/11/2020 at 14:16 ECG Data Attestation: I personally reviewed and interpreted this ECG as follows: Interpretation: Normal sinus rhythm normal EKG rate 72, no ST elevation depression. MDM Narrative Medical decision making narrative: Patient refuses CT angiogram due to history of kidney failure and history of only 1 kidney. He understands in contrast can damage his remaining kidney function and also understands that it is vital to visualize arteries for possible clot removal. Time is of the essence as only has 24 hour window as I spoke with dr olea, stroke doctor and with [facility] Time 5:45 p.m.. Patient understands that there not an MRI a large enough except for and [place]... He now states he does not want to be transferred at all and he understands that the window for endovascular treatment will be missed as now he states he wants to stay here. Multiple calls to stroke position made by me. As well as to make attempts for calming patient for MRI. No tPA as indicated by stroke doctor has be on the window. At this time no endovascular intervention as well because will miss the window for 24 hours due to attempt to accommodate for patient's request for open field MRI <Abram Heller, DO - Last Filed: 07/11/20 21:53> Lab Data Labs: Lab Results 07/11/20 07/11/20 07/11/20 Range/Units 13:46 13:46 13:46 WBC 9.1 (4.5-11.0) X10^3/uL RBC 4.91 (4.5-5.9) X10^6/uL Hgb 14.7 (13.5-17.5) g/dL Hct 44.3 (41-53) % MCV 90.2 (80-100) fL MCH 29.9 (26-34) PG MCHC 33.1 (30-36) % RDW 15.1 H (11.6-14.8) % Plt Count 210 (150-400) X10^3/uL Neut % (Auto) 83.9 H (50-75) % Lymph % (Auto) 10.7 L (25-40) % [place] % (Auto) 4.3 (3-14) % Eos % (Auto) 0.4 L (2-4) % Baso % (Auto) 0.7 (0-2) % Neut # (Auto) 7600 H (0686-2214) /uL Lymph # (Auto) 1000 L (3559-2246) /uL [place] # (Auto) 400 (0-900) /uL Eos # (Auto) 0 (0-450) /uL Baso # (Auto) 100 (0-100) /uL PT 12.2 (10.1-12.7) SECONDS INR 1.1 (0.9-1.3) APTT 39 H (26.4-36.2) SECONDS Sodium 133 L (137-145) mmol/L Potassium 5.6 H (3.4-5.1) mmol/L Chloride 108 H (98-107) mmol/L Carbon Dioxide 14 L (22-32) mmol/L BUN 41 H (9-20) mg/dL Creatinine 2.31 H (0.66-1.25) mg/dL Estimated GFR 28.4 L (>60) mL/min BUN/Creatinine Ratio 17.7 (6-22) Glucose 351 H (80-110) mg/dL Calcium 8.5 (8.4-10.2) mg/dL Total Bilirubin 0.7 (0.2-1.3) mg/dL AST 18 (17-59) IU/L ALT 15 (<50) IU/L Alkaline Phosphatase 90 (38-126) U/L Total Creatine Kinase 111 (55-170) U/L CK-MB (CK-2) 1.32 (<2.37) ng/mL CK-MB (CK-2) Rel Index 1.2 L (1.5-5.0) % Troponin I < 0.012 (0.01-0.034) ng/mL Total Protein 6.9 (6.3-8.2) g/dL Albumin 3.9 (3.5-5.0) g/dL Globulin 3.0 (1.7-4.1) g/dL Albumin/Globulin Ratio 1.3 (1.0-2.8) Urine Color Urine Appearance Urine pH (4.5-8.0) Ur Specific [place] (1.000-1.035) Urine Protein (Negative) Urine Glucose (UA) (Negative) g/dL Urine Ketones (NEGATIVE) Urine Occult Blood (Negative) Urine Nitrate (Negative) Urine Bilirubin (NEGATIVE) Urine Urobilinogen (0.2) E.U./dL Ur Leukocyte Esterase (NEGATIVE) Urine RBC (0-5/HPF) Urine WBC (0-5/HPF) Ur Squamous Epith Cells (0-5/HPF) Urine Bacteria (None) Ur Culture Indicated? U Opiates 300ng/mL cut (Negative) Ur Oxycodone Screen (Negative) Urine Methadone Screen (Negative) Ur Barbiturates Screen (Negative) U Tricyclic Antidepress (Negative) Ur Phencyclidine Scrn (Negative) Ur Amphetamines Screen (Negative) U Methamphetamines Scrn (Negative) Ur MDMA Scrn (Ecstasy) (Negative) U Benzodiazepines Scrn (Negative) Urine Cocaine Screen (Negative) U Marijuana (THC) Screen (Negative) COVID-19 PCR (Negative) 07/11/20 07/11/20 07/11/20 Range/Units 16:00 16:00 17:20 WBC (4.5-11.0) X10^3/uL RBC (4.5-5.9) X10^6/uL Hgb (13.5-17.5) g/dL Hct (41-53) % MCV (80-100) fL MCH (26-34) PG MCHC (30-36) % RDW (11.6-14.8) % Plt Count (150-400) X10^3/uL Neut % (Auto) (50-75) % Lymph % (Auto) (25-40) % [place] % (Auto) (3-14) % Eos % (Auto) (2-4) % Baso % (Auto) (0-2) % Neut # (Auto) (3339-8058) /uL Lymph # (Auto) (6125-9050) /uL [place] # (Auto) (0-900) /uL Eos # (Auto) (0-450) /uL Baso # (Auto) (0-100) /uL PT (10.1-12.7) SECONDS INR (0.9-1.3) APTT (26.4-36.2) SECONDS Sodium (137-145) mmol/L Potassium (3.4-5.1) mmol/L Chloride (98-107) mmol/L Carbon Dioxide (22-32) mmol/L BUN (9-20) mg/dL Creatinine (0.66-1.25) mg/dL Estimated GFR (>60) mL/min BUN/Creatinine Ratio (6-22) Glucose (80-110) mg/dL Calcium (8.4-10.2) mg/dL Total Bilirubin (0.2-1.3) mg/dL AST (17-59) IU/L ALT (<50) IU/L Alkaline Phosphatase (38-126) U/L Total Creatine Kinase (55-170) U/L CK-MB (CK-2) (<2.37) ng/mL CK-MB (CK-2) Rel Index (1.5-5.0) % Troponin I (0.01-0.034) ng/mL Total Protein (6.3-8.2) g/dL Albumin (3.5-5.0) g/dL Globulin (1.7-4.1) g/dL Albumin/Globulin Ratio (1.0-2.8) Urine Color Yellow Urine Appearance Clear Urine pH 5.0 (4.5-8.0) Ur Specific [place] 1.010 (1.000-1.035) Urine Protein Trace H (Negative) Urine Glucose (UA) 2+ H (Negative) g/dL Urine Ketones Negative (NEGATIVE) Urine Occult Blood 3+ H (Negative) Urine Nitrate Negative (Negative) Urine Bilirubin Negative (NEGATIVE) Urine Urobilinogen 0.2 (0.2) E.U./dL Ur Leukocyte Esterase Negative (NEGATIVE) Urine RBC 5-10/hpf H (0-5/HPF) Urine WBC 0-1/hpf (0-5/HPF) Ur Squamous Epith Cells 0-1 /hpf (0-5/HPF) Urine Bacteria None seen (None) Ur Culture Indicated? Cult not indicated U Opiates 300ng/mL cut Negative (Negative) Ur Oxycodone Screen Negative (Negative) Urine Methadone Screen Negative (Negative) Ur Barbiturates Screen Negative (Negative) U Tricyclic Antidepress Negative (Negative) Ur Phencyclidine Scrn Negative (Negative) Ur Amphetamines Screen Negative (Negative) U Methamphetamines Scrn Negative (Negative) Ur MDMA Scrn (Ecstasy) Negative (Negative) U Benzodiazepines Scrn Negative (Negative) Urine Cocaine Screen Negative (Negative) U Marijuana (THC) Screen Negative (Negative) COVID-19 PCR Negative (Negative) 07/11/20 Range/Units 18:19 WBC (4.5-11.0) X10^3/uL RBC (4.5-5.9) X10^6/uL Hgb (13.5-17.5) g/dL Hct (41-53) % MCV (80-100) fL MCH (26-34) PG MCHC (30-36) % RDW (11.6-14.8) % Plt Count (150-400) X10^3/uL Neut % (Auto) (50-75) % Lymph % (Auto) (25-40) % [place] % (Auto) (3-14) % Eos % (Auto) (2-4) % Baso % (Auto) (0-2) % Neut # (Auto) (7954-4932) /uL Lymph # (Auto) (0664-8805) /uL [place] # (Auto) (0-900) /uL Eos # (Auto) (0-450) /uL Baso # (Auto) (0-100) /uL PT (10.1-12.7) SECONDS INR (0.9-1.3) APTT (26.4-36.2) SECONDS Sodium 135 L (137-145) mmol/L Potassium 5.3 H (3.4-5.1) mmol/L Chloride 110 H (98-107) mmol/L Carbon Dioxide 17 L (22-32) mmol/L BUN 39 H (9-20) mg/dL Creatinine 2.18 H (0.66-1.25) mg/dL Estimated GFR 30.3 L (>60) mL/min BUN/Creatinine Ratio 17.9 (6-22) Glucose 218 H D (80-110) mg/dL Calcium 8.2 L (8.4-10.2) mg/dL Total Bilirubin (0.2-1.3) mg/dL AST (17-59) IU/L ALT (<50) IU/L Alkaline Phosphatase (38-126) U/L Total Creatine Kinase (55-170) U/L CK-MB (CK-2) (<2.37) ng/mL CK-MB (CK-2) Rel Index (1.5-5.0) % Troponin I (0.01-0.034) ng/mL Total Protein (6.3-8.2) g/dL Albumin (3.5-5.0) g/dL Globulin (1.7-4.1) g/dL Albumin/Globulin Ratio (1.0-2.8) Urine Color Urine Appearance Urine pH (4.5-8.0) Ur Specific [place] (1.000-1.035) Urine Protein (Negative) Urine Glucose (UA) (Negative) g/dL Urine Ketones (NEGATIVE) Urine Occult Blood (Negative) Urine Nitrate (Negative) Urine Bilirubin (NEGATIVE) Urine Urobilinogen (0.2) E.U./dL Ur Leukocyte Esterase (NEGATIVE) Urine RBC (0-5/HPF) Urine WBC (0-5/HPF) Ur Squamous Epith Cells (0-5/HPF) Urine Bacteria (None) Ur Culture Indicated? U Opiates 300ng/mL cut (Negative) Ur Oxycodone Screen (Negative) Urine Methadone Screen (Negative) Ur Barbiturates Screen (Negative) U Tricyclic Antidepress (Negative) Ur Phencyclidine Scrn (Negative) Ur Amphetamines Screen (Negative) U Methamphetamines Scrn (Negative) Ur MDMA Scrn (Ecstasy) (Negative) U Benzodiazepines Scrn (Negative) Urine Cocaine Screen (Negative) U Marijuana (THC) Screen (Negative) COVID-19 PCR (Negative) MDM Narrative Medical decision making narrative: Dr Heller: Received turned over from Dr Frankel. Initial plan was that patient was waiting for a repeat BMP in order to evaluate his creatinine and potassium after receiving fluids with anticipation that he was going to be admitted to our facility here for further workup of what was initially described as a CVA/TIA. He reviewed patient's history and physical. I performed my own independent evaluation of the patient. Patient does have symptoms that were concerning for CVA/TIA however he is outside the window for tPA as his symptoms started greater than 12 hours ago. At the time of my evaluation of the patient he stated that he does feel that maybe his symptoms are improving even more than when he 1st arrived here to the ER. Patient's repeat BMP does show a slight improvement of his creatinine and a slight improvement of his hyperkalemia. Patient is asymptomatic from both these. Patient does have longstanding history of kidney issues with a right- sided total nephrectomy and a partial nephrectomy of the left side. Review of his labs shows that his creatinine today is most likely at baseline. When I called to the hospitalist who Dr. Frankel that talked with earlier there was still concerned about his elevated creatinine and elevated potassium and thought that he needed to be transferred to a facility that had Nephrology. I went in to explain this to the patient. We did discuss his symptoms. We did discuss we were worried about to include CVA/TIA. We did discuss his creatinine levels. Patient stated that he in no circumstances would accept a radiologic study that includes contrast is he stated that he does not want to take any chances about hurting his kidneys further and ending up on dialysis. He also expressed concern that the last time he has had MRIs he needed a significant amount of sedation secondary to claustrophobia issues. Patient stated that he did not want to be transferred to another facility. His son is at bedside during these conversations. His son stated that he is not surprised that his father did not want to be transferred. His son stated that it was ?everything I could do ?to get him to come to the emergency department this evening. Had a long discussion with the patient and his son regarding this. Patient expressed multiple times that he did not want to be transferred. We discussed the risks and benefits of this. We discussed the risks and benefits of going home this evening. We did discuss our concerns about his presenting symptoms. We did discuss that his symptoms could potentially lead to further strokes which could be life- threatening/debilitating and potentially leading to . Patient expressed understanding of this. The patient's son also expressed understanding of this discussion. Patient was alert and oriented x3. GCS of 15. In my opinion had capacity to make decisions. The patient then told me that he already had an appointment scheduled tomorrow morning at 0900 hours with his primary provider. This was scheduled as a routine follow-up several weeks ago and was not for the symptoms that he presented with today. Patient stated that he would like to be discharged home and follow-up with his primary doctor tomorrow. Patient did sign the against medical advice paperwork. Patient was informed that he could return to the emergency department at any point if he changed his mind. The patient's son stated that there was going to be someone to stay with him this evening. After the patient was discharged I realize that the patient's primary doctor is 1 of the individuals in the [facility] [place] that in its their own patients and does not get admitted to the hospitalist. All of the admission discussions prior to this by Dr. Frankel was with the hospitalist group not with the patient's primary doctor's group. I called Dr. Aleman who was on-call for the patient's primary doctor and explained the situation to her. She stated that she would be willing to admit the patient here at this facility. We did discuss the patient's concerns about obtaining radiologic stud ies with IV contrast and his concerns about needing sedation for the MRI. I called the patient at home at the number provided him here in his note and informed him that I had further discussions with the provider who would admit for his primary provider and their willingness to admit him to this facility here which would eliminate the need to transfer him to another facility. During this phone conversation the patient expressed understanding of this. He again expressed understanding of our concerns about his presenting symptoms. He stated that he did not want to come back to the emergency department to be admitted to the hospital. He stated that he would rather stay home and follow- up with his primary doctor tomorrow. I once again informed him that he could return to the emergency department at any point if he had new symptoms or changes mind. He expressed understanding of this. Discharge Plan Departure Patient Disposition: Left Against Medical Advice Clinical Impression: Acute kidney injury, Acute hyperkalemia Cerebrovascular accident Qualifiers: CVA mechanism: unspecified Qualified Code(s): I63.9 - Cerebral infarction, unspecified Discharge Date/Time: 07/11/20 20:22 Instructions: DI for Stroke-Ischemic Activity Restrictions/Additional Instructions: Despite our conversations today you expressed understanding of the risks and benefits of being admitted/transferred to a hospital and being discharged home. After this discussion you did decide to be discharged home to follow-up with your primary doctor at your scheduled appointment tomorrow at 0900 hours. Recommend that you start taking a aspirin on a daily basis. You can return to the emergency department at any point if you change your mind. Prescriptions: No Action Glucose: Home Monitor Qty: 1 RF: 0 Syringes: 1cc Insulin Syringes with [place] SEE INSTRUCTIONS Qty: 450 RF: 3 [INSULIN PEN NEEDLES] SQ 5XD Qty: 450 RF: 3 losartan [Cozaar] 50 mg tablet 50 mg PO QDAY Qty: 90 RF: 3 gemfibrozil 600 mg tablet 600 mg PO BIDAC Qty: 180 RF: 3 tamsulosin [Flomax] 0.4 mg capsule 0.4 mg PO QDAY Qty: 90 RF: 3 Lantus Solostar U-100 Insulin 100 unit/mL (3 mL) insulin pen 50 unit SUBCUT DAILY Qty: 15 RF: 8 Humalog U-100 Insulin 100 unit/mL cartridge See Rx Instructions subcut TIDAC Qty: 15 RF: 9 lisinopril 2.5 mg tablet 2.5 mg PO QDAY Qty: 90 RF: 3 OneTouch Verio test strips Strip See Rx Instructions .ROUTE .COMPLEX Qty: 100 RF: 3 bupropion HCl 150 mg tablet sustained-release 12 hr See Rx Instructions .ROUTE .COMPLEX Qty: 60 RF: 5 testosterone cypionate 100 mg/mL oil 150 mg IM EVERY 2 WEEKS Qty: 4 RF: 5 Referrals: Noe Lynn MD [Primary Care Provider] - Stand Alone Forms: Against Medical Advice
[2020-07-11 16:03] LABS: Bacteria Urine None Seen
[2020-07-11] MEDS: SODIUM CHLORIDE 0.9% 1,000 ML 1000 ML IV (16:03)
[2020-07-11] MEDS: ASPIRIN 81 MG CHEW TAB 324 MG PO (16:03)
[2020-07-11 16:09] LABS: Appearance Urine UA CLEAR; Bilirubin Urine UA NEGATIVE (NEGATIVE); Color Urine UA YELLOW; Glucose Urine UA 2+ g/dL (Negative); Ketones Urine UA NEGATIVE (NEGATIVE); Leukocyte Esterase Urine UA NEGATIVE (NEGATIVE); Nitrite Urine UA NEGATIVE (Negative); Occult Blood Urine UA 3+ (Negative); Protein Urine UA TRACE (Negative); Urobilinogen Urine UA 0.2 E.U./dL (0.2)
[2020-07-11 16:11] LABS: RBC Urine 5-10/HPF (0-5/HPF); Squamous Epithelial Cell Urine 0-1 /HPF (0-5/HPF); WBC Urine 0-1/HPF (0-5/HPF)
[2020-07-11 16:12] LABS: Culture Indicated Urine Cult Not Indicated; UR Morphine/Opiate cutoff 300 Negative (Negative); Ur Creatinine Normal (Normal); Ur Specific Gravity Normal (Normal); Urine Amphetamines Negative (Negative); Urine Barbiturates Negative (Negative); Urine Benzodiazepines Negative (Negative); Urine Cocaine Negative (Negative); Urine MDMA Negative (Negative); Urine Methadone Negative (Negative); Urine Methamphetamines Negative (Negative); Urine Oxycodone Negative (Negative); Urine Phencyclidine Negative (Negative); Urine Tetrahydrocannabinol Negative (Negative); Urine Tricyclic Antidepressant Negative (Negative); Urine pH Normal (Normal)
[2020-07-11 18:31] LABS: COVID19 -Nasal RAPID Negative (Negative)
[2020-07-11 18:42] LABS: BUN Creatinine Ratio 17.9 (6-22); Blood Urea Nitrogen 39 mg/dL (9-20); Calcium 8.2 mg/dL (8.4-10.2); Carbon Dioxide 17 mmol/L (22-32); Chloride 110 mmol/L (98-107); Estimated Glomerular Filt Rate 30.3 mL/min (>60); Glucose 218 mg/dL (80-110); HEMOLYSIS 26 (0-50); Potassium 5.3 mmol/L (3.4-5.1); Sodium 135 mmol/L (137-145)
--- NOTE | 2020-07-11 20:20 | PC.NURSE ---
Pt spoke extensively with Dr Heller regarding not wanting to be transferred. Pt signed AMA and DC paperwork and placed in chart.
== END 2020-07-11 20:22 | disposition left against medical advice (07) ==
PROVIDERS: Emergency Medicine; Emergency Provider Emergency Medicine; PCP Family Medicine
DX: I63.9 Cerebral infarction, unspecified (principal); E87.5 Hyperkalemia; N17.9 Acute kidney failure, unspecified; R53.1 Weakness; Z90.5 Acquired absence of kidney; R42 Dizziness and giddiness
CPT/HCPCS: 36415; 70450; 71045; 80048; 80053; 80305; 81001; 82550; 82553; 84484; 85025; 85610; 85730; 87635; 93005; 93010; 96360; 96361; 99284; 99285

== ENCOUNTER → 2020-07-13 08:08 | Outpatient (CLI) | payer MEDICARE, OTHER, SELFPAY ==
[2020-07-13 08:46] LABS: Hemoglobin A1C% w Est Avg Glu 8.9 % (4.0-6.0)
[2020-07-13 09:18] LABS: Cholesterol 198 mg/dL (140-199); HDL Cholesterol 30 mg/dL (40-60); LDL Cholesterol Calculated 133 mg/dL (<100); Triglycerides 174 mg/dL (35-150)
[2020-07-13 10:27] LABS: Creatinine Urine Random 101.2 mg/dL
[2020-07-13 10:29] LABS: Microalbumi Creatinin Ratio Ur 142.2 ug/mg CR (<30); Microalbumin Urine Random 14.4 mg/dL (0-1.6)
== END ==
PROVIDERS: PCP Family Medicine; Referring Provider Family Medicine; Visit Provider Family Medicine
DX: E11.9 Type 2 diabetes mellitus without complications (principal)
CPT/HCPCS: 36415; 80061; 82043; 82570; 83036; G0103

== ENCOUNTER → 2020-08-11 11:39 | Outpatient (CLI) | payer MEDICARE, OTHER, SELFPAY ==
--- NOTE | 2020-08-11 11:51 | DI.CT.S_ITS ---
PROCEDURE: CT HEAD/BRAIN WO CON INDICATIONS: Right Visual field loss TECHNIQUE: Noncontrast 4.5 mm thick angled axial sections acquired from the foramen magnum to the vertex, with coronal and sagittal reformats. For radiation dose reduction, the following was used: automated exposure control, adjustment of mA and/or kV according to patient size. COMPARISON: [facility], CT, HEAD WITHOUT CONTRAST, 08/24/2010, 15:01. [facility], CT, CT HEAD/BRAIN WO CON, 07/11/2020, 13:48. FINDINGS: Image quality: Excellent. CSF spaces: Basal cisterns are patent. No extra-axial fluid collections. The ventricles are symmetric in size and shape. Brain: There is a left RECONCILER territory infarction seen, including involving a portion of the left occipital lobe, as previously demonstrated. No interval hemorrhage can be seen. No intracranial masses. There is cerebral volume loss for age, with resultant ventricular and sulcal prominence. There are periventricular and deep white matter chronic small vessel ischemic changes. There is intracranial internal carotid artery atherosclerosis. Skull and face: Calvarium and visualized facial bones appear intact, without suspicious lesions. Sinuses: Visualized sinuses and mastoids are clear. IMPRESSION: Left RECONCILER territory infarction again seen, including a portion of the left occipital lobe, which correlates well with the given clinical history of right visual field loss. Dictated by: Quincy Gregory M.D. on 08/11/2020 at 11:04 Approved by: Quincy Gregory M.D. on 08/11/2020 at 11:06
== END ==
PROVIDERS: PCP Family Medicine; Referring Provider Family Medicine; Visit Provider Family Medicine
DX: I69.398 Other sequelae of cerebral infarction (principal); I65.29 Occlusion and stenosis of unspecified carotid artery; H53.8 Other visual disturbances; H53.40 Unspecified visual field defects
CPT/HCPCS: 70450

== ENCOUNTER 2020-08-31 15:59 | Inpatient (IN) | payer MEDICARE, OTHER, SELFPAY ==
[2020-08-31] VITALS (10 sets, daily range): BP systolic 151–191; BP diastolic 77–89; PULSE 68–87; RESP 16–29; TEMP 37.3–37.8; O2SAT 96–99; BMI 31.8
--- NOTE | 2020-08-31 16:12 | DI.CT.S_ITS ---
PROCEDURE: CT HEAD/BRAIN WO CON INDICATIONS: Confusion, possible CVA TECHNIQUE: Noncontrast 4.5 mm thick angled axial sections acquired from the foramen magnum to the vertex, with coronal and sagittal reformats. For radiation dose reduction, the following was used: automated exposure control, adjustment of mA and/or kV according to patient size. COMPARISON: [facility], CT, CT HEAD/BRAIN WO CON, 08/11/2020, 11:42. [facility], CT, CT HEAD/BRAIN WO CON, 07/11/2020, 13:48. FINDINGS: Image quality: Excellent. CSF spaces: Basal cisterns are patent. No extra-axial fluid collections. The ventricles are symmetric in size and shape. Brain: No intracranial bleeds or masses. There is cerebral volume loss for age, with resultant ventricular and sulcal prominence. There are periventricular and deep white matter chronic small vessel ischemic changes. There is reduction in size of the area of edema related to subacute infarction identified 07/11/20 in the left occipital lobe. No new stroke is identified by CT scanning, no intracranial hemorrhage is found. There is intracranial internal carotid artery atherosclerosis. Skull and face: Calvarium and visualized facial bones appear intact, without suspicious lesions. Sinuses: Visualized sinuses and mastoids are clear. IMPRESSION: Involuting stroke with reduced mass effect at the left occipital region, related to subacute stroke identified 07/11/20. No acute disease. Dictated by: Ian Yo M.D. on 08/31/2020 at 16:21 Approved by: Ian Yo M.D. on 08/31/2020 at 16:23
--- NOTE | 2020-08-31 16:46 | ED_ITS ---
HPI - Neuro Symptoms/Deficit <Abram Heller, DO - Last Filed: 08/31/20 19:29> General Source: patient Mode of arrival: Ambulatory Limitations: no limitations History of Present Illness HPI Narrative: 69-year-old male who arrived to the emergency department as a code stroke. Patient's last known normal was last evening. He is not on anticoagulation. He did have a stroke several months ago. Did not have some of the subsequent workup secondary to the inability to have an MRI secondary to claustrophobia. Patient is here with his son. Patient's son states that he talked with the patient last evening in there did not seem to be any issues with memory. Patient's son states that his next contact with the patient was this morning at approximately 0930 when he noticed that the patient seemed very confused. Was very repetitive. Asking the same questions over and over again. Did not know the date or the month or the year which he normally does. Patient's son states that he took him although in order to convince his father to come to the emergency department. Here in the ER patient does admit that he is having some confusion issues. He denies any other symptoms. Has not tried anything for symptoms prior to arrival. On Anticoagulants: No Related Data Previous Rx's Medication Instructions Recorded Glucose: Home Monitor units #1 02/25/17 Syringes: 1cc Insulin Syringes syr SEE INSTRUCTIONS #450 12/29/17 with [place] [INSULIN PEN NEEDLES] SQ 5XD #450 12/31/17 losartan 50 mg tablet 50 mg PO QDAY #90 tab 01/25/19 tamsulosin [Flomax] 0.4 mg PO QDAY #90 cap 02/25/19 insulin glargine 100 unit/mL (3 50 unit SUBCUT DAILY #15 ml 12/12/19 mL) subcutaneous pen insulin lispro 100 unit/mL See Rx Instructions SUBCUT TIDAC 01/21/20 subcutaneous cartridge #15 ml blood sugar diagnostic See Rx Instructions .ROUTE 04/05/20 .COMPLEX #100 strip testosterone cypionate 100 mg/mL 150 mg IM EVERY 2 WEEKS #4 vial 05/19/20 intramuscular oil aspirin [Aspirin Low Dose] 81 mg PO DAILY #90 tab 09/02/20 atorvastatin [Lipitor] 20 mg PO BEDTIME #90 tab 09/02/20 bupropion HCl 150 mg PO BID #60 tab 09/02/20 Allergies Allergy/AdvReac Type Severity Reaction Status Date / Time No Known Drug Allergies Allergy Unknown Verified 08/10/20 11:41 [NO KNOWN DRUG ALLERGIES] Review of Systems <Abram Heller DO - Last Filed: 08/31/20 19:29> Constitutional Constitutional: Denies chills, Denies fatigue, Denies fever(s) and Denies headache(s) Eyes Eyes: Denies change in vision ENT Ears, Nose, Mouth, and Throat: Denies vertigo, Denies dizziness, Denies headache(s) and Denies disequilibrium Cardiovascular Cardiovascular: Denies chest pain, Denies syncope and Denies dyspnea Respiratory Respiratory: Denies cough and Denies dyspnea Gastrointestinal Gastrointestinal: Denies abdominal pain, Denies nausea and Denies vomiting Genitourinary Genitourinary: Denies dysuria Genitourinary: Denies dysuria Musculoskeletal Musculoskeletal: Denies arthralgias, Denies myalgias and Denies numbness Integumentary/Breasts Skin/Breast: Denies lesions and Denies rash Neurologic Neurologic: Denies behavioral changes, Reports confusion, Denies vertigo, Denies dizziness, Denies syncope, Denies headache(s), Reports memory loss, Denies numbness and Denies disequilibrium Psychiatric Psychiatric: Denies anxiety, Denies behavioral changes, Reports confusion and Reports memory loss Endocrine Endocrine: Denies fatigue Hematologic/Lymphatic Hematologic/Lymphatic: Denies easy bleeding and Denies easy bruising Allergic/Immunologic Allergic/Immunologic: Denies urticaria Patient History <Abram Heller DO - Last Filed: 08/31/20 19:29> Medical History (Updated 09/01/20 @ 07:56 by Gianni Reddy MD) Body mass index (BMI) of 38.0 to 38.9 in adult (02/25/17) Depression (Acute 02/25/17) Essential hypertension (Acute 02/25/17) Mixed hyperlipidemia (Acute 08/13/17) Renal cell carcinoma (Inactive) Renal failure (02/25/17) Type 2 diabetes mellitus without complication (Acute 02/25/17) Social History marital status: number of children: 4 household members: none lives independently: Yes caregiver/support person: No housing: house pets and animals: Yes education level: high school occupational status: employed current occupational exposures/hazards: Yes augie/moravian: [employer] special augie needs: No travel history: over 6 months ago leisure activities: exercise and other Smoking Status: Former smoker Tobacco: How many years used: 25 Smokeless tobacco user: chewing tobacco and other quit status: quit date established second hand exposure: No alcohol intake: current substance use type: does not use Smoking Status: Former smoker alcohol intake frequency: holidays/special occasions only Exam <Abram Heller DO - Last Filed: 08/31/20 19:29> Initial Vital Signs Initial Vital Signs: Vital Signs Pulse Rate 87 08/31/20 16:13 Respiratory Rate 20 08/31/20 16:13 Blood Pressure 191/89 H 08/31/20 16:13 Pulse Oximetry 98 08/31/20 16:13 Const General: cooperative and comfortable Limitations: altered mental status HENMT Head: normal to inspection and normocephalic Resp Effort & Inspection: normal respiratory effort Auscultation: clear to auscultation bilaterally Cardio Rate: regular rate Rhythm: regular rhythm GI Inspection: non-distended Palpation: soft Skin Lesions: no lesions Rashes: no rashes Neuro General: patient alert and patient awake Cranial Nerves: CN's II-XI intact bilaterally Cognition: abnormal cognition Speech: speech normal Motor: muscle tone normal throughout Sensory Exam: no sensory deficits noted Coordination: [id number] test normal Extrem General: normal to inspection and capillary refill normal Psych Appearance: grossly normal and well kempt <Arsalan Butt MD - Last Filed: 09/04/20 08:23> Initial Vital Signs Initial Vital Signs: Vital Signs Pulse Rate 87 08/31/20 16:13 Respiratory Rate 20 08/31/20 16:13 Blood Pressure 191/89 H 08/31/20 16:13 Pulse Oximetry 98 08/31/20 16:13 Scores <Abram Heller DO - Last Filed: 08/31/20 19:29> GCS Loren coma scale eye opening: Spontaneous [place] coma scale verbal response: Confused [place] coma scale motor response: Obey commands Loren coma scale total score: 14 NIH Stroke Scale Level of Conciousness: Alert, keenly responsive Ask month/age: Answers one question correctly, intubated follow commands Open/close eyes, close hand: Performs both tasks correctly Best gaze horizontal: Normal Visual parker: No visual loss Facial palsy: Normal symetrical movement Left arm drift: No drift for full 10 sec Right arm drift: No drift for full 10 sec Left leg drift: No drift for full 5 sec Right leg drift: No drift for full 5 sec Limb ataxia: Absent Sensory on face/arms/legs: Normal, no sensory loss Best language: No aphasia, normal Dysarthria: Normal Extinction or inattention: No abnormality Total NIH Stroke scale score: 1 Course <Abram Heller DO - Last Filed: 08/31/20 19:29> Orders Ordered: Discontinued Medications Acetaminophen (Tylenol) 650 mg PO Q6HR PRN PRN Reason: Fever/Mild Pain (1-3) Last Admin: 09/01/20 21:33 Dose: 650 mg Documented by: Admin: 09/01/20 00:52 Dose: 650 mg Documented by: GALO Amlodipine Besylate (Norvasc) 5 mg PO DAILY [facility] Last Admin: 09/02/20 09:34 Dose: 5 mg Documented by: Admin: 09/01/20 12:39 Dose: 5 mg Documented by: DEB Aspirin (Aspirin Ec) 325 mg PO DAILY [facility] Last Admin: 09/02/20 09:34 Dose: 325 mg Documented by: Admin: 09/01/20 08:48 Dose: 325 mg Documented by: DEB Atorvastatin Calcium (Lipitor) 20 mg PO BEDTIME [facility] Last Admin: 09/01/20 21:33 Dose: 20 mg Documented by: Admin: 08/31/20 20:59 Dose: 20 mg Documented by: ROBBY Dextrose (D50w) 25 gm IV PRN PRN PRN Reason: Hypoglycemia Diphenhydramine HCl (Benadryl) 50 mg PO BEDTIME PRN PRN Reason: Insomnia Last Admin: 09/01/20 21:33 Dose: 50 mg Documented by: Admin: 09/01/20 00:52 Dose: 50 mg Documented by: GALO Enoxaparin Sodium (Lovenox) 40 mg SUBCUT DAILY [facility] Last Admin: 09/02/20 09:34 Dose: 40 mg Documented by: Admin: 09/01/20 08:48 Dose: 40 mg Documented by: DEB Sodium Chloride (Normal Saline 0.9%) 1,000 mls @ 100 mls/hr IV CONT [facility] Last Infusion: 09/02/20 00:51 Dose: 0 mls/hr Documented by: Admin: 09/02/20 00:51 Dose: 100 mls/hr Documented by: Infusion: 09/01/20 23:46 Dose: 100 mls/hr Documented by: Admin: 09/01/20 13:46 Dose: 100 mls/hr Documented by: Infusion: 09/01/20 06:59 Dose: 100 mls/hr Documented by: Admin: 08/31/20 20:59 Dose: 100 mls/hr Documented by: ROBBY Insulin Aspart (Novolog Flexpen) 0 unit SUBCUT ACHS CAITLIN; Protocol Last Admin: 09/02/20 12:53 Dose: Not Given Documented by: Admin: 09/02/20 09:32 Dose: Not Given Documented by: Admin: 09/01/20 21:32 Dose: 2 unit Documented by: LORIN Cosigned by: ROBBY Admin: 09/01/20 17:07 Dose: 3 unit Documented by: LORIN Cosigned by: ROBBY Admin: 09/01/20 12:32 Dose: 3 unit Documented by: DEB Royigned by: ANSELMO Admin: 09/01/20 08:51 Dose: 3 unit Documented by: DEB Cosigned by: ANSELMO Admin: 08/31/20 20:43 Dose: Not Given Documented by: ROBBY Insulin Glargine (Lantus Solostar (Pen)) 50 unit SUBCUT DAILY [facility] Last Admin: 09/02/20 09:34 Dose: 50 unit Documented by: DENYS Cosigned by: ISAURA Admin: 09/01/20 08:55 Dose: 50 unit Documented by: DEB Cosigned by: ANSELMO Lisinopril (Zestril) 2.5 mg PO DAILY [facility] Last Admin: 09/01/20 08:46 Dose: 2.5 mg Documented by: DEB Lorazepam (Ativan) 1 mg IV NOW ONE Stop: 08/31/20 19:33 Last Admin: 09/01/20 07:53 Dose: 1 mg Documented by: DEB Lorazepam (Ativan) 1 mg IV NOW ONE Stop: 09/01/20 08:01 Last Admin: 09/01/20 08:05 Dose: 1 mg Documented by: DEB Naloxone HCl (Narcan) 0.2 mg IV Q2MIN PRN PRN Reason: Opiate Reversal Ondansetron HCl (Zofran) 4 mg IV Q8HR PRN PRN Reason: Nausea And Vomiting Tamsulosin HCl (Flomax) 0.4 mg PO DAILY [facility] Last Admin: 09/02/20 09:34 Dose: 0.4 mg Documented by: Admin: 09/01/20 08:47 Dose: 0.4 mg Documented by: DEB Vital Signs Vital signs: Vital Signs - 8 hr 08/31/20 16:13 08/31/20 16:27 08/31/20 16:30 Temperature 100.0 F H Pulse Rate 87 82 70 Respiratory Rate 20 24 18 Blood Pressure 191/89 H 190/88 H Pulse Oximetry 98 98 99 08/31/20 17:00 08/31/20 17:01 08/31/20 17:30 Temperature Pulse Rate 72 76 73 Respiratory Rate 25 H 29 H 21 Blood Pressure 158/77 H Pulse Oximetry 96 96 96 08/31/20 17:31 08/31/20 18:00 08/31/20 18:30 Temperature Pulse Rate 76 71 68 Respiratory Rate 23 16 22 Blood Pressure 165/78 H 174/81 H 174/79 H Pulse Oximetry 97 98 97 <Arsalan Butt MD - Last Filed: 09/04/20 08:23> Orders Ordered: Discontinued Medications Acetaminophen (Tylenol) 650 mg PO Q6HR PRN PRN Reason: Fever/Mild Pain (1-3) Last Admin: 09/01/20 21:33 Dose: 650 mg Documented by: Admin: 09/01/20 00:52 Dose: 650 mg Documented by: GALO Amlodipine Besylate (Norvasc) 5 mg PO DAILY [facility] Last Admin: 09/02/20 09:34 Dose: 5 mg Documented by: Admin: 09/01/20 12:39 Dose: 5 mg Documented by: DEB Aspirin (Aspirin Ec) 325 mg PO DAILY [facility] Last Admin: 09/02/20 09:34 Dose: 325 mg Documented by: Admin: 09/01/20 08:48 Dose: 325 mg Documented by: DEB Atorvastatin Calcium (Lipitor) 20 mg PO BEDTIME [facility] Last Admin: 09/01/20 21:33 Dose: 20 mg Documented by: Admin: 08/31/20 20:59 Dose: 20 mg Documented by: ROBBY Dextrose (D50w) 25 gm IV PRN PRN PRN Reason: Hypoglycemia Diphenhydramine HCl (Benadryl) 50 mg PO BEDTIME PRN PRN Reason: Insomnia Last Admin: 09/01/20 21:33 Dose: 50 mg Documented by: Admin: 09/01/20 00:52 Dose: 50 mg Documented by: GALO Enoxaparin Sodium (Lovenox) 40 mg SUBCUT DAILY [facility] Last Admin: 09/02/20 09:34 Dose: 40 mg Documented by: Admin: 09/01/20 08:48 Dose: 40 mg Documented by: DEB Sodium Chloride (Normal Saline 0.9%) 1,000 mls @ 100 mls/hr IV CONT [facility] Last Infusion: 09/02/20 00:51 Dose: 0 mls/hr Documented by: Admin: 09/02/20 00:51 Dose: 100 mls/hr Documented by: Infusion: 09/01/20 23:46 Dose: 100 mls/hr Documented by: Admin: 09/01/20 13:46 Dose: 100 mls/hr Documented by: Infusion: 09/01/20 06:59 Dose: 100 mls/hr Documented by: Admin: 08/31/20 20:59 Dose: 100 mls/hr Documented by: ROBBY Insulin Aspart (Novolog Flexpen) 0 unit SUBCUT ACHS [facility]; Protocol Last Admin: 09/02/20 12:53 Dose: Not Given Documented by: Admin: 09/02/20 09:32 Dose: Not Given Documented by: Admin: 09/01/20 21:32 Dose: 2 unit Documented by: LORIN Cosigned by: ROBBY Admin: 09/01/20 17:07 Dose: 3 unit Documented by: LORIN Royigned by: ROBBY Admin: 09/01/20 12:32 Dose: 3 unit Documented by: DEB Cosigned by: ANSELMO Admin: 09/01/20 08:51 Dose: 3 unit Documented by: DEB Cosigned by: ANSELMO Admin: 08/31/20 20:43 Dose: Not Given Documented by: ROBBY Insulin Glargine (Lantus Solostar (Pen)) 50 unit SUBCUT DAILY [facility] Last Admin: 09/02/20 09:34 Dose: 50 unit Documented by: DENYS Cosigned by: ISAURA Admin: 09/01/20 08:55 Dose: 50 unit Documented by: DEB Cosigned by: ANSELMO Lisinopril (Zestril) 2.5 mg PO DAILY [facility] Last Admin: 09/01/20 08:46 Dose: 2.5 mg Documented by: DEB Lorazepam (Ativan) 1 mg IV NOW ONE Stop: 08/31/20 19:33 Last Admin: 09/01/20 07:53 Dose: 1 mg Documented by: DEB Lorazepam (Ativan) 1 mg IV NOW ONE Stop: 09/01/20 08:01 Last Admin: 09/01/20 08:05 Dose: 1 mg Documented by: DEB Naloxone HCl (Narcan) 0.2 mg IV Q2MIN PRN PRN Reason: Opiate Reversal Ondansetron HCl (Zofran) 4 mg IV Q8HR PRN PRN Reason: Nausea And Vomiting Tamsulosin HCl (Flomax) 0.4 mg PO DAILY [facility] Last Admin: 09/02/20 09:34 Dose: 0.4 mg Documented by: Admin: 09/01/20 08:47 Dose: 0.4 mg Documented by: DEB Vital Signs Vital signs: Vital Signs - 8 hr 08/31/20 16:13 08/31/20 16:27 08/31/20 16:30 Temperature 100.0 F H Pulse Rate 87 82 70 Respiratory Rate 20 24 18 Blood Pressure 191/89 H 190/88 H Pulse Oximetry 98 98 99 08/31/20 17:00 08/31/20 17:01 08/31/20 17:30 Temperature Pulse Rate 72 76 73 Respiratory Rate 25 H 29 H 21 Blood Pressure 158/77 H Pulse Oximetry 96 96 96 08/31/20 17:31 08/31/20 18:00 08/31/20 18:30 Temperature Pulse Rate 76 71 68 Respiratory Rate 23 16 22 Blood Pressure 165/78 H 174/81 H 174/79 H Pulse Oximetry 97 98 97 MDM - Neuro Symptoms/Deficit <Abram Heller DO - Last Filed: 08/31/20 19:29> Medical Records Attestation: I reviewed the patient's medical records. Lab Data Attestation: I reviewed the patient's lab results. Result diagrams: 09/02/20 05:05 09/02/20 05:05 Labs: Lab Results 08/31/20 08/31/20 08/31/20 Range/Units 16:30 16:30 16:30 WBC 8.2 (4.5-11.0) X10^3/uL RBC 4.85 (4.5-5.9) X10^6/uL Hgb 14.4 (13.5-17.5) g/dL Hct 43.8 (41-53) % MCV 90.3 (80-100) fL MCH 29.8 (26-34) PG MCHC 33.0 (30-36) % RDW 13.9 (11.6-14.8) % Plt Count 221 (150-400) X10^3/uL Neut % (Auto) 77.7 H (50-75) % Lymph % (Auto) 15.0 L (25-40) % [place] % (Auto) 5.2 (3-14) % Eos % (Auto) 1.6 L (2-4) % Baso % (Auto) 0.5 (0-2) % Neut # (Auto) 6300 (7171-4325) /uL Lymph # (Auto) 1200 (2219-3912) /uL [place] # (Auto) 400 (0-900) /uL Eos # (Auto) 100 (0-450) /uL Baso # (Auto) 0 (0-100) /uL PT 12.0 (10.1-12.7) SECONDS INR 1.0 (0.9-1.3) APTT 41 H D (26.4-36.2) SECONDS Sodium 139 (137-145) mmol/L Potassium 5.6 H (3.4-5.1) mmol/L Chloride 107 (98-107) mmol/L Carbon Dioxide 22 (22-32) mmol/L BUN 27 H (9-20) mg/dL Creatinine 1.60 H (0.66-1.25) mg/dL Estimated GFR 43.3 L (>60) mL/min BUN/Creatinine Ratio 16.9 (6-22) Glucose 249 H (80-110) mg/dL Calcium 9.0 (8.4-10.2) mg/dL Total Bilirubin 0.4 (0.2-1.3) mg/dL AST 21 (17-59) IU/L ALT 23 (<50) IU/L Alkaline Phosphatase 106 (38-126) U/L Ammonia (9-30) umol/L Total Protein 7.2 (6.3-8.2) g/dL Albumin 4.1 (3.5-5.0) g/dL Globulin 3.1 (1.7-4.1) g/dL Albumin/Globulin Ratio 1.3 (1.0-2.8) Lipase 138 (23-300) U/L Ethyl Alcohol < 10 ( - 10) mg/dL 08/31/20 Range/Units 16:42 WBC (4.5-11.0) X10^3/uL RBC (4.5-5.9) X10^6/uL Hgb (13.5-17.5) g/dL Hct (41-53) % MCV (80-100) fL MCH (26-34) PG MCHC (30-36) % RDW (11.6-14.8) % Plt Count (150-400) X10^3/uL Neut % (Auto) (50-75) % Lymph % (Auto) (25-40) % [place] % (Auto) (3-14) % Eos % (Auto) (2-4) % Baso % (Auto) (0-2) % Neut # (Auto) (5703-4193) /uL Lymph # (Auto) (1598-8313) /uL [place] # (Auto) (0-900) /uL Eos # (Auto) (0-450) /uL Baso # (Auto) (0-100) /uL PT (10.1-12.7) SECONDS INR (0.9-1.3) APTT (26.4-36.2) SECONDS Sodium (137-145) mmol/L Potassium (3.4-5.1) mmol/L Chloride (98-107) mmol/L Carbon Dioxide (22-32) mmol/L BUN (9-20) mg/dL Creatinine (0.66-1.25) mg/dL Estimated GFR (>60) mL/min BUN/Creatinine Ratio (6-22) Glucose (80-110) mg/dL Calcium (8.4-10.2) mg/dL Total Bilirubin (0.2-1.3) mg/dL AST (17-59) IU/L ALT (<50) IU/L Alkaline Phosphatase (38-126) U/L Ammonia 12 (9-30) umol/L Total Protein (6.3-8.2) g/dL Albumin (3.5-5.0) g/dL Globulin (1.7-4.1) g/dL Albumin/Globulin Ratio (1.0-2.8) Lipase (23-300) U/L Ethyl Alcohol ( - 10) mg/dL Point of Care Testing Glucose POC [address] scan - head: Radiologist's Impression: [address] [address] [address] Scan Report Signed Patient: Estrella Fan R#: [id number] : 3Acct:[id number] Age/Sex: 69 / MDate of Service: 08/31/20 Loc: ED Accession Number: [id number] Procedure: CT head/brain wo con Ordering Provider: Abram Heller D.O. PROCEDURE: CT HEAD/BRAIN WO CON INDICATIONS: Confusion, possible CVA TECHNIQUE: Noncontrast 4.5 mm thick angled axial sections acquired from the foramen magnum to the vertex, with coronal and sagittal reformats. For radiation dose reduction, the following was used: automated exposure control, adjustment of mA and/or kV according to patient size. COMPARISON: [facility], CT, CT HEAD/BRAIN WO CON, 08/11/2020, 11:42. [facility], CT, CT HEAD/BRAIN WO CON, 07/11/2020, 13:48. FINDINGS: Image quality: Excellent. CSF spaces: Basal cisterns are patent. No extra-axial fluid collections. The ventricles are symmetric in size and shape. Brain: No intracranial bleeds or masses. There is cerebral volume loss for age, with resultant ventricular and sulcal prominence. There are periventricular and deep white matter chronic small vessel ischemic changes. There is reduction in size of the area of edema related to subacute infarction identified 07/11/20 in the left occipital lobe. No new stroke is identified by CT scanning, no intracranial hemorrhage is found. There is intracranial internal carotid artery atherosclerosis. Skull and face: Calvarium and visualized facial bones appear intact, without suspicious lesions. Sinuses: Visualized sinuses and mastoids are clear. IMPRESSION: Involuting stroke with reduced mass effect at the left occipital region, related to subacute stroke identified 07/11/20. No acute disease. Dictated by: Ian Yo M.D. on 08/31/2020 at 16:21 Approved by: Ian Yo M.D. on 08/31/2020 at 16:23 ECG Data Attestation: I personally reviewed and interpreted this ECG as follows: Prior ECG tracings: not available for review Interpretation: Sinus rhythm Ventricular rate 81 Normal QRS Normal QTC MDM Narrative Medical decision making narrative: Code stroke called upon arrival. Has a NIH score of 1 secondary to his orientation questions. Last known normal was last evening so patient not a tPA candidate. Head CT shows old stroke but no new findings. EKG unremarkable. Labs unremarkable. Patient did seem to understand that he was having problems remembering things. His memory issues seem to be focused around the day of the week and the year. He knew that he was in the hospital. He knew his prior history about having a stroke several months ago. He knew the issues associated with the MRI at that time. Even though he was reminded multiple times of the day of the week and the year he was unable to retain these new memories. Had a long discussion with the patient and his son who are at bedside. We did discuss that I was concerned that he was potentially having another stroke. We also discussed that this could potentially be another issue that had yet to be diagnosed. Did discuss admitting to the hospital and what this would entail. The patient stated that he was willing to consider having another MRI. I did discuss the case with Dr. Butt who was on-call for the patient's primary provider. Will admit for further evaluation treatment. <Arsalan Butt MD - Last Filed: 09/04/20 08:23> Lab Data Labs: Lab Results 08/31/20 08/31/20 08/31/20 Range/Units 16:30 16:30 16:30 WBC 8.2 (4.5-11.0) X10^3/uL RBC 4.85 (4.5-5.9) X10^6/uL Hgb 14.4 (13.5-17.5) g/dL Hct 43.8 (41-53) % MCV 90.3 (80-100) fL MCH 29.8 (26-34) PG MCHC 33.0 (30-36) % RDW 13.9 (11.6-14.8) % Plt Count 221 (150-400) X10^3/uL Neut % (Auto) 77.7 H (50-75) % Lymph % (Auto) 15.0 L (25-40) % [place] % (Auto) 5.2 (3-14) % Eos % (Auto) 1.6 L (2-4) % Baso % (Auto) 0.5 (0-2) % Neut # (Auto) 6300 (4990-6177) /uL Lymph # (Auto) 1200 (1757-7082) /uL [place] # (Auto) 400 (0-900) /uL Eos # (Auto) 100 (0-450) /uL Baso # (Auto) 0 (0-100) /uL PT 12.0 (10.1-12.7) SECONDS INR 1.0 (0.9-1.3) APTT 41 H D (26.4-36.2) SECONDS Sodium 139 (137-145) mmol/L Potassium 5.6 H (3.4-5.1) mmol/L Chloride 107 (98-107) mmol/L Carbon Dioxide 22 (22-32) mmol/L BUN 27 H (9-20) mg/dL Creatinine 1.60 H (0.66-1.25) mg/dL Estimated GFR 43.3 L (>60) mL/min BUN/Creatinine Ratio 16.9 (6-22) Glucose 249 H (80-110) mg/dL Calcium 9.0 (8.4-10.2) mg/dL Total Bilirubin 0.4 (0.2-1.3) mg/dL AST 21 (17-59) IU/L ALT 23 (<50) IU/L Alkaline Phosphatase 106 (38-126) U/L Ammonia (9-30) umol/L Total Protein 7.2 (6.3-8.2) g/dL Albumin 4.1 (3.5-5.0) g/dL Globulin 3.1 (1.7-4.1) g/dL Albumin/Globulin Ratio 1.3 (1.0-2.8) Lipase 138 (23-300) U/L Ethyl Alcohol < 10 ( - 10) mg/dL 08/31/20 Range/Units 16:42 WBC (4.5-11.0) X10^3/uL RBC (4.5-5.9) X10^6/uL Hgb (13.5-17.5) g/dL Hct (41-53) % MCV (80-100) fL MCH (26-34) PG MCHC (30-36) % RDW (11.6-14.8) % Plt Count (150-400) X10^3/uL Neut % (Auto) (50-75) % Lymph % (Auto) (25-40) % [place] % (Auto) (3-14) % Eos % (Auto) (2-4) % Baso % (Auto) (0-2) % Neut # (Auto) (0500-5754) /uL Lymph # (Auto) (5501-9336) /uL [place] # (Auto) (0-900) /uL Eos # (Auto) (0-450) /uL Baso # (Auto) (0-100) /uL PT (10.1-12.7) SECONDS INR (0.9-1.3) APTT (26.4-36.2) SECONDS Sodium (137-145) mmol/L Potassium (3.4-5.1) mmol/L Chloride (98-107) mmol/L Carbon Dioxide (22-32) mmol/L BUN (9-20) mg/dL Creatinine (0.66-1.25) mg/dL Estimated GFR (>60) mL/min BUN/Creatinine Ratio (6-22) Glucose (80-110) mg/dL Calcium (8.4-10.2) mg/dL Total Bilirubin (0.2-1.3) mg/dL AST (17-59) IU/L ALT (<50) IU/L Alkaline Phosphatase (38-126) U/L Ammonia 12 (9-30) umol/L Total Protein (6.3-8.2) g/dL Albumin (3.5-5.0) g/dL Globulin (1.7-4.1) g/dL Albumin/Globulin Ratio (1.0-2.8) Lipase (23-300) U/L Ethyl Alcohol ( - 10) mg/dL Point of Care Testing Glucose POC 245 Discharge Plan Departure Patient Disposition: Admitted as Observation Clinical Impression: Acute confusion Discharge Date/Time: 08/31/20 19:13 Instructions: Ischemic Stroke, DI for Stroke-Ischemic, How to Prevent Falls Referrals: Noe Lynn MD [Primary Care Provider] - 2 Weeks (PLEASE CALL DR. LYNN'S OFFICE TO SCHEDULE YOUR HOSPITAL FOLLOW UP APPOINTMENT TO BE SEEN IN 2 WEEKS. DISCUSS OUTPATIENT SPEECH THERAPY FOR COGNITIVE THERAPY.) Admit Date/Time: 08/31/20 18:41 Admit Provider: Arsalan Butt
[2020-08-31 16:48] LABS: PTT Partial Thromboplastin Tim 41 SECONDS (26.4-36.2)
[2020-08-31 16:52] LABS: Alanine Aminotransferase 23 IU/L (<50); Albumin 4.1 g/dL (3.5-5.0); Albumin Globulin Ratio 1.3 (1.0-2.8); Alkaline Phosphatase 106 U/L (38-126); Aspartate Aminotransferase 21 IU/L (17-59); BUN Creatinine Ratio 16.9 (6-22); Bilirubin Total 0.4 mg/dL (0.2-1.3); Blood Urea Nitrogen 27 mg/dL (9-20); Carbon Dioxide 22 mmol/L (22-32); Chloride 107 mmol/L (98-107); Estimated Glomerular Filt Rate 43.3 mL/min (>60); Ethanol (ETOH) < 10 mg/dL; Globulin 3.1 g/dL (1.7-4.1); Glucose 249 mg/dL (80-110); HEMOLYSIS < 15 (0-50); Lipase 138 U/L (23-300); Sodium 139 mmol/L (137-145); Total Protein 7.2 g/dL (6.3-8.2)
[2020-08-31 16:53] LABS: Potassium 5.6 mmol/L (3.4-5.1)
[2020-08-31 16:59] LABS: Ammonia (NH3) 12 umol/L (9-30)
[2020-08-31 17:02] LABS: Add Manual Diff / Slide Review NO; Basophils Absolute Auto 0 /uL (0-100); Basophils Percent Auto 0.5 % (0-2); Eosinophils Absolute Auto 100 /uL (0-450); Eosinophils Percent Auto 1.6 % (2-4); Hematocrit 43.8 % (41-53); Hemoglobin 14.4 g/dL (13.5-17.5); Lymphocytes Absolute Auto 1200 /uL (1100-4500); Mean Corpuscular Hemoglobin 29.8 PG (26-34); Mean Corpuscular Volume 90.3 fL (80-100); Monocytes Absolute Auto 400 /uL (0-900); Monocytes Percent Auto 5.2 % (3-14); Neutrophils Absolute Auto 6300 /uL (1500-7000); Neutrophils Percent Auto 77.7 % (50-75); Platelet Count 221 X10^3/uL (150-400); Red Blood Cell Count 4.85 X10^6/uL (4.5-5.9); Red Cell Distribution Width 13.9 % (11.6-14.8); White Blood Cell Count 8.2 X10^3/uL (4.5-11.0)
--- NOTE | 2020-08-31 19:19 | P.HP_ITS ---
History of Present Illness History of Present Illness Date Patient Seen: 08/31/20 Time Patient Seen: 19:20 Chief complaint: possible stroke, memory loss, facial droop Narrative: 69-year-old male patient seen and evaluated in the emergency department patient has a history which includes renal cell carcinoma of the kidney depression hypertension stage III kidney failure insulin-dependent diabetes hyperlipidemia and recent cerebrovascular accident in June 2008. Yunior rodriguez lives at home independently in his son lives nearby. Patient and son communicated last evening by phone and things seem to be going well. When patient son visited this morning patient had mental status changes and there was some concern. Patient was found to be a little bit confused had a hard time remembering things and was just not acting himself. They did not appreciate any facial muscle weakness difficulty with hands difficulty with speech or talking nonsense of LEEP. He did not nursing problems with gait or balance. Due to his recent cerebrovascular accident patient's family became concerned and brought him to the emergency department. Emergency Department evaluation the emergency room physician says patient was confused and disoriented. Was unsure of date time and occasionally place but he would remember with cues and reminders. Had fairly good remote history remember being in the hospital previously with a stroke and other history he was good at. After talking to the patient about the date and time and where was outpatient would be re-evaluated in he be forgetful with some of these items. Patient had repeat laboratory testing CT scan shows previous cerebrovascular accident visualized in June without acute ischemic changes. Review of his records last time hand imaging was also done and recent laboratory tests. On my evaluation patient states he is feeling a little bit better. I do not see any obvious gross neurological deficits. Says he feels pretty good but knows he would like to get worked up in figure out what is going on. He does remember that he has [facility] he is a little sketchy on the date and time. He has good remote history. Patient History Medical History Body mass index (BMI) of 38.0 to 38.9 in adult (02/25/17) Depression (02/25/17) Essential hypertension (02/25/17) Mixed hyperlipidemia (08/13/17) Renal cell carcinoma (Inactive) Renal failure (02/25/17) Type 2 diabetes mellitus without complication (02/25/17) Family & Social History Social History: household members children lives independently Yes caregiver/support person No Safety & Behavioral: Feels Safe in Current Yes Environment Tobacco & Substance use: Smoking Status Former smoker alcohol intake current alcohol intake frequency holiday/special occasion Meds Home Medications and Allergies Home Medications Medication Instructions Recorded Confirmed Type Glucose: Home Monitor units #1 02/25/17 08/10/20 Rx Syringes: 1cc Insulin Syringes syr SEE INSTRUCTIONS #450 12/29/17 08/10/20 Rx with [place] [INSULIN PEN NEEDLES] SQ 5XD #450 12/31/17 08/10/20 Rx losartan 50 mg tablet 50 mg PO QDAY #90 tab 01/25/19 08/10/20 Rx gemfibrozil 600 mg PO BIDAC #180 tab 01/27/19 08/10/20 Rx tamsulosin [Flomax] 0.4 mg PO QDAY #90 cap 02/25/19 08/10/20 Rx insulin glargine 100 unit/mL (3 50 unit SUBCUT DAILY #15 ml 12/12/19 08/10/20 Rx mL) subcutaneous pen insulin lispro 100 unit/mL See Rx Instructions SUBCUT TIDAC 01/21/20 08/10/20 Rx subcutaneous cartridge #15 ml lisinopril 2.5 mg tablet 2.5 mg PO QDAY #90 tab 03/20/20 08/10/20 Rx blood sugar diagnostic See Rx Instructions .ROUTE 04/05/20 08/10/20 Rx .COMPLEX #100 strip bupropion HCl 150 mg tablet,12 hr See Rx Instructions .ROUTE 05/18/20 08/10/20 Rx sustained-release .COMPLEX #60 tablet testosterone cypionate 100 mg/mL 150 mg IM EVERY 2 WEEKS #4 vial 05/19/20 08/10/20 Rx intramuscular oil Allergies Allergy/AdvReac Type Severity Reaction Status Date / Time No Known Drug Allergies Allergy Unknown Verified 08/10/20 11:41 [NO KNOWN DRUG ALLERGIES] Exam Vital Signs (past 8 hours): - 08/31/20 16:13 08/31/20 16:27 08/31/20 16:30 Temperature 100.0 F H Pulse Rate 87 82 70 Respiratory Rate 20 24 18 Blood Pressure 191/89 H 190/88 H Pulse Oximetry 98 98 99 08/31/20 17:00 08/31/20 17:01 08/31/20 17:30 Temperature Pulse Rate 72 76 73 Respiratory Rate 25 H 29 H 21 Blood Pressure 158/77 H Pulse Oximetry 96 96 96 08/31/20 17:31 08/31/20 18:00 08/31/20 18:30 Temperature Pulse Rate 76 71 68 Respiratory Rate 23 16 22 Blood Pressure 165/78 H 174/81 H 174/79 H Pulse Oximetry 97 98 97 Oxygen Delivery Method Room Air Objective Labs Result Diagrams: 08/31/20 16:30 08/31/20 16:30 Labs: Laboratory Results - last 24 hr 08/31/20 08/31/20 08/31/20 16:30 16:30 16:30 WBC 8.2 RBC 4.85 Hgb 14.4 Hct 43.8 MCV 90.3 MCH 29.8 MCHC 33.0 RDW 13.9 Plt Count 221 Neut % (Auto) 77.7 H Lymph % (Auto) 15.0 L [place] % (Auto) 5.2 Eos % (Auto) 1.6 L Baso % (Auto) 0.5 Neut # (Auto) 6300 Lymph # (Auto) 1200 [place] # (Auto) 400 Eos # (Auto) 100 Baso # (Auto) 0 PT 12.0 INR 1.0 APTT 41 H D Sodium 139 Potassium 5.6 H Chloride 107 Carbon Dioxide 22 BUN 27 H Creatinine 1.60 H Estimated GFR 43.3 L BUN/Creatinine Ratio 16.9 Glucose 249 H Calcium 9.0 Total Bilirubin 0.4 AST 21 ALT 23 Alkaline Phosphatase 106 Ammonia Total Protein 7.2 Albumin 4.1 Globulin 3.1 Albumin/Globulin Ratio 1.3 Lipase 138 Ethyl Alcohol < 10 08/31/20 16:42 WBC RBC Hgb Hct MCV MCH MCHC RDW Plt Count Neut % (Auto) Lymph % (Auto) [place] % (Auto) Eos % (Auto) Baso % (Auto) Neut # (Auto) Lymph # (Auto) [place] # (Auto) Eos # (Auto) Baso # (Auto) PT INR APTT Sodium Potassium Chloride Carbon Dioxide BUN Creatinine Estimated GFR BUN/Creatinine Ratio Glucose Calcium Total Bilirubin AST ALT Alkaline Phosphatase Ammonia 12 Total Protein Albumin Globulin Albumin/Globulin Ratio Lipase Ethyl Alcohol Assessment & Plan Assessment & Plan narrative: Altered mental status. Patient has an NIH stroke scale of 1. Patient recently admitted the hospital in June with cerebrovascular accident. Patient's current CT scan shows no acute concerning findings. Due to patient's recent history and past medical history certainly concerning for another vascular event of the brain. Patient needs further workup and evaluation of this. Like to order an MRI stroke protocol of the brain. Patient needs an echocardiogram to make sure there is no valvular p athology or cardioembolic disease. I would like to do carotid ultrasound to rule out any carotic artery disease as the cause of repeat mental status changes and is cerebrovascular accident. Patient will be put on appropriate treatment such as aspirin 325 mg a day a statin 20 mg a day Lovenox for DVT prophylaxis. Will placed on trying lemon tree monitoring to rule out underlying heart atrial fibrillation is the cause. He work with physical therapy occupational therapy and speech. Will repeat his neurological examination and NIH stroke scale. Yes patient has a hard time with MRIs and is quite claustrophobic so we will provide appropriate medication as needed for this. Cerebrovascular accident patient recently had a CVA. He is a high risk for recurrence. He will be placed on appropriate management with blood pressure cholesterol and anti-platelet therapy. He will continue with workup of underlying causes including cardioembolic and carotid disease. Hyperkalemia. Patient has elevated potassium. Looks like that home he is on an angiotensin receptor and possibly an BETHANY-inhibitor on his medication list. He also has renal disease with chronic renal failure which may be contributing to his high potassium. Will hold his angiotensin receptor audi continue with his BETHANY-inhibitor hydrate him with fluids. See if this helps improve his hyperkalemia Juanita [place]. Diabetes insulin dependent. Patient will be started on his insulin Lantus and be covered with insulin sliding scale. He will have blood sugars a.c. and HS. Patient's blood sugars will be cup of below 200. Will watch for signs of hypoglycemia CKD stage 3. Patient has chronic kidney disease. His creatinine is in the normal range. Previously has had a nephrectomy due to her renal cell carcinoma. Will monitor closely his kidney function his potassium here in the hospital and avoid studies that have had dye. Hypertension. Patient will be started on lisinopril were continued on this medication monitor closely his potassium level and kidney function. Disposition and plan. Patient needs further workup and evaluation of his altered mental status concerning for cerebrovascular event. He will be admitted as an observation for further workup.
--- NOTE | 2020-08-31 19:31 | DI.MRI.S_ITS ---
PROCEDURE: MR HEAD/BRAIN WO CON INDICATIONS: cva TECHNIQUE: Non-contrast axial T1 spin echo, axial T2 fast spin echo, sagittal and axial FLAIR, coronal T2 fast spin echo, axial gradient echo, axial diffusion and ADC through the brain. COMPARISON: [facility], CT, CT HEAD/BRAIN WO CON, 08/31/2020, 16:14. [facility], CT, CT HEAD/BRAIN WO CON, 08/11/2020, 11:42. [facility], CT, CT HEAD/BRAIN WO CON, 07/11/2020, 13:48. FINDINGS: Image quality: Excellent. CSF spaces: Ventricles appear symmetric in size and shape. Basal cisterns are patent. No extra-axial fluid collections. Brain: No intracranial bleeds or mass effects. There is cerebral volume loss for age. There are periventricular and deep white matter chronic small vessel ischemic changes. Brainstem appears normal. Small foci of restricted diffusion noted in the medial aspect of the right occipital lobe compatible with acute infarct. Increased T2 signal noted in the maria matter of the medial aspect of the left occipital lobe most compatible with late subacute/early chronic infarct. Curvilinear GRE artifact noted in the left occipital infarct compatible with petechial hemorrhage. Normal intravascular flow voids are present. Skull and face: Calvarial bone marrow is normal in signal. Orbits are normal. Sinuses: Sinuses and mastoids are clear. IMPRESSION: 1. Small acute infarcts involving the medial aspect of the right occipital lobe. 2. Evolving late subacute/early chronic left occipital infarct. Petechial hemorrhage identified within the left occipital infarct. 3. Mild, diffuse cerebral volume loss. Dictated by: Evelin Dumont MD, PhD on 09/01/2020 at 9:03 Approved by: Evelin Dumont MD, PhD on 09/01/2020 at 9:08
[2020-08-31] MEDS: SODIUM CHLORIDE 0.9% 1,000 ML 100 ML IV (20:59)
[2020-08-31] MEDS: ATORVASTATIN 20 MG TABLET PO (20:59)
[2020-09-01] VITALS (7 sets, daily range): BP systolic 124–165; BP diastolic 62–84; PULSE 65–90; RESP 16–20; TEMP 36.4–37.1; O2SAT 96–98
[2020-09-01] MEDS: ACETAMINOPHEN 325 MG TABLET 650 MG PO ×2 (00:52→21:33)
[2020-09-01] MEDS: diphenhydrAMINE 25 MG TABLET 50 MG PO ×2 (00:52→21:33)
[2020-09-01] MEDS: LORazepam 2 MG/ML INJ 1 MG IV ×2 (07:53→08:05)
[2020-09-01 08:26] LABS: BUN Creatinine Ratio 15.7 (6-22); Blood Urea Nitrogen 25 mg/dL (9-20); Calcium 8.7 mg/dL (8.4-10.2); Carbon Dioxide 25 mmol/L (22-32); Chloride 105 mmol/L (98-107); Estimated Glomerular Filt Rate 43.6 mL/min (>60); Glucose 243 mg/dL (80-110); HEMOLYSIS < 15 (0-50); Sodium 136 mmol/L (137-145)
[2020-09-01 08:27] LABS: Potassium 5.6 mmol/L (3.4-5.1)
[2020-09-01] MEDS: lisinopriL 5 MG TABLET 2.5 MG PO (08:46)
[2020-09-01] MEDS: TAMSULOSIN 0.4 MG CAPSULE PO (08:47)
[2020-09-01] MEDS: ASPIRIN EC 325 MG TABLET PO (08:48)
[2020-09-01] MEDS: ENOXAPARIN 40 MG/0.4 ML SYRINGE SUBCUT (08:48)
[2020-09-01] MEDS: INSULIN ASPART 100 UNIT/ML INSULN PEN SUBCUT ×4 (08:51→21:32)
--- NOTE | 2020-09-01 08:53 | P.PN_ITS ---
Subjective Subjective Date Patient Seen: 09/01/20 Time Patient Seen: 08:53 Interval history: Patient seen this morning. Son at bedside. He was able to get his MRI scan with some assistance and some Ativan. Patient does not remember me from last night has forgetful of date time he does know he has an anti Cordis. Has were discussing a few minutes later he asks who I am. His son says he has maybe been on and off confused for the last couple of days. But more concerning the last 24 hours. He has previously had a stroke. With an incomplete evaluation last time as patient was afraid to going MRIs machine. This morning other than his confusion I do not see any significant neurological deficits as far as facial muscle weakness decreased strength. Does not appear to have problems with his balance. He has a little bit tearful. On reviewing his social history with his PICC son. Patient is not a heavy drinker. Does not use recreational drugs. Exam Vital Signs (past 8 hours): - 09/01/20 05:05 Temperature 98.0 F Pulse Rate 78 Respiratory Rate 20 Blood Pressure 135/75 Pulse Oximetry 98 Oxygen Delivery Method Room Air Oxygen Flow Rate 0 Narrative Exam Narrative: Gen.: Patient disoriented to place and time and forgetful HEENT: NCAT PERRLA tympanic membranes are clear nares are patent oral mucosa is moist no tonsillar hypertrophy neck is supple without lymphadenopathy no thyroid enlargement. Cardio: S1-S2 regular rate and rhythm no murmurs appreciated. Respiratory: Lungs are clear to auscultation no wheezes or crackles normal respiratory effort. Abdomen: Soft nontender no rebound or guarding no liver spleen enlargement no appreciable hernias Extremities: Full range of motion no appreciable weakness no cyanosis or edema. Neurologic: Cranial nerves are intact. Strength in lower extremities bilaterally is normal Objective Labs Result Diagrams: 08/31/20 16:30 09/01/20 07:59 Labs: Laboratory Results - last 24 hr 08/31/20 08/31/20 08/31/20 16:30 16:30 16:30 WBC 8.2 RBC 4.85 Hgb 14.4 Hct 43.8 MCV 90.3 MCH 29.8 MCHC 33.0 RDW 13.9 Plt Count 221 Neut % (Auto) 77.7 H Lymph % (Auto) 15.0 L [place] % (Auto) 5.2 Eos % (Auto) 1.6 L Baso % (Auto) 0.5 Neut # (Auto) 6300 Lymph # (Auto) 1200 [place] # (Auto) 400 Eos # (Auto) 100 Baso # (Auto) 0 PT 12.0 INR 1.0 APTT 41 H D Sodium 139 Potassium 5.6 H Chloride 107 Carbon Dioxide 22 BUN 27 H Creatinine 1.60 H Estimated GFR 43.3 L BUN/Creatinine Ratio 16.9 Glucose 249 H Calcium 9.0 Total Bilirubin 0.4 AST 21 ALT 23 Alkaline Phosphatase 106 Ammonia Total Protein 7.2 Albumin 4.1 Globulin 3.1 Albumin/Globulin Ratio 1.3 Lipase 138 Ethyl Alcohol < 10 08/31/20 09/01/20 16:42 07:59 WBC RBC Hgb Hct MCV MCH MCHC RDW Plt Count Neut % (Auto) Lymph % (Auto) [place] % (Auto) Eos % (Auto) Baso % (Auto) Neut # (Auto) Lymph # (Auto) [place] # (Auto) Eos # (Auto) Baso # (Auto) PT INR APTT Sodium 136 L Potassium 5.6 H Chloride 105 Carbon Dioxide 25 BUN 25 H Creatinine 1.59 H Estimated GFR 43.6 L BUN/Creatinine Ratio 15.7 Glucose 243 H Calcium 8.7 Total Bilirubin AST ALT Alkaline Phosphatase Ammonia 12 Total Protein Albumin Globulin Albumin/Globulin Ratio Lipase Ethyl Alcohol Assessment & Plan Assessment & Plan narrative: Altered mental status. Patient has an NIH stroke scale of 1. Differentials include cerebrovascular toxic and metabolic. Leaning toward a cerebrovascular. No history of alcohol or recreational drugs. History of cerebrovascular accident. Patient was not on anti-platelet or statin. So far telemetry monitoring has not revealed any significant heart arrhythmias. Echocardiogram and carotid ultrasound is pending. Continue with aspirin and statin. Cerebrovascular accident patient recently had a CVA. He is a high risk for recurrence. He will be placed on appropriate management with blood pressure cholesterol and anti-platelet therapy. He will continue with workup of underlying causes including cardioembolic and carotid disease. Hyperkalemia. Patient has elevated potassium. IV fluid hydration last night potassium still in the same range today. Due to his chronic kidney disease will go ahead and stop his lisinopril and his angiotensin receptor audi. And place him on amlodipine which may be better in the superintendent container terminal for blood pressure control but also due to his elevated creatinine Abrahan inhibitors in arms may not be the safest thing. Diabetes insulin dependent. Monitoring blood sugars. Patient on insulin Lantus and sliding scale coverage. Blood sugars are within acceptable range. CKD stage 3. Patient has chronic kidney disease. His creatinine is in the normal range. Previously has had a nephrectomy due to her renal cell carcinoma. Will monitor closely his kidney function his potassium here in the hospital and avoid studies that have had dye. Hypertension. Stop his angiotensin receptor audi and ABRAHAN-inhibitor that maybe he was on at home. On review of his chart is CKD creatinine is above 2 at times. Probably best not to use those and will go ahead and start him on amlodipine. Disposition and plan. Patient is still confused continue with workup. Carotid ultrasound and echocardiogram. A guess in the past he has left the hospital because he gets anxious about staying here his son is with him in says he will try to stay with him due to his confusion.
[2020-09-01] MEDS: INSULIN GLARGINE 100 UNIT/ML 3ML PEN 50 UNIT SUBCUT (08:55)
--- NOTE | 2020-09-01 10:33 | ST.IPSLE ---
Visit Care Team Role Provider Type Noe Lynn MD Primary Care Provider Physician Specialty: Family Practice Address: [address] [place] [address], [id number] Email: [email or web address] Abram Heller DO Emergency Provider Physician Specialty: Emergency Medicine Address: [address] [place] [address], [id number] Email: [email or web address] Arsalan Butt MD Admit Provider Physician Attending Provider Specialty: Family Practice Address: [address] [place] [address], [id number] Email: [email or web address] Past Medical History (Last Updated 09/01/20 @ 07:56 by Gianni Reddy MD) Body mass index (BMI) of 38.0 to 38.9 in adult (Medical 02/25/17) Depression (Acute Medical 02/25/17) Essential hypertension (Acute Medical 02/25/17) Mixed hyperlipidemia (Acute Medical 08/13/17) Renal cell carcinoma (Inactive Medical) Renal failure (Medical 02/25/17) Type 2 diabetes mellitus without complication (Acute Medical 02/25/17) Speech-Language Pathology Speech/Language Eval [employer] Adult Cognitive Linguistic Eval Start: 09/01/20 09:14 Freq: Status: Active Protocol: Document 09/01/20 09:15 LNK (Rec: 09/01/20 10:32 LNK [id number]) Adult Cognitive Linguistic Evaluation Session Time Visit Start Time 08:45 Visit Stop Time 09:15 Total Visit Minutes [address] Butt Reason for Referral CVA/TIA Setting Assessment Location Acute Care Visit Type Note Type Initial evaluation Next Note Type Next Note Type Treatment Note Patient Information Identification Type Name,Date of Medical History Per H&P: 69-year-old male patient seen and evaluated in the emergency department patient has a history which includes renal cell carcinoma of the kidney depression hypertension stage III kidney failure insulin-dependent diabetes hyperlipidemia and recent cerebrovascular accident in June 2008. Patient lives at home independently in his son lives nearby. Patient and son communicated last evening by phone and things seem to be going well. When patient son visited this morning patient had mental status changes and there was some concern. Patient was found to be a little bit confused had a hard time remembering things and was just not acting himself. Vision Comments Wears glasses to read Subjective Mental Status Confused Assessment Results OME indicated structures and function to be WFL Informal Assessment Pragmatic Language Normal Yes Speech Normal Yes Cognition Normal No Cognitive Impairment(s) Orientation,Short-term memory Formal Assessment Results Conversation with pt indicated some confusion, especially regarding date, day, year. Oriented to person, place, time. [facility] This may have impacted his cognition . Would recommend SLUMS with OT after pt clears. Findings/Results Findings Conversationally, pt appeared to have adequate language and speech. No word-finding difficulty with naming 12/12 pictures. Cookie theft picture described as expected. Also no dysarthria observed. OME was WFL. Speech intelligibility 100% Cognitive Communication Deficits Self-awareness of Cognitive- Situational awareness ( Communication Deficits recognition of problem in context;in real time) Impact on Functioning Safety Risks Mod: Being Left Alone at Home Managing Medication Prognosis Prognosis Good Based on Family support Plan of Care Speech-Language Treatment Yes Frequency while inpt for reorientation/ strategy development Patient/Caregiver Education Described results of evaluation,Family/caregivers expressed understanding of evaluation Short Term Goals Pt will be able to locate date /day on the white board in his room when needed. Discharge Recommendations Home
--- NOTE | 2020-09-01 10:34 | SLP.IPNOTE ---
Pt seen for cognition/language evaluation secondary to diagnosis of CVA/TIA. Swallowing was screened during assessment with Pt eating regular texture/thin liquids breakfast without difficulty. Observed with medications as well. Formal swallow evaluation not indicated at this time
--- NOTE | 2020-09-01 11:41 | PC.NURSE ---
Patient given 1mg of iv ativan earlier, as he is claustrophobic. Wheeled down for MRI and tolerated well. Patient is diabetic bs 219 this am and lantus and ss insulin given. NIH stroke scale a 1 as patient is forgetful and did not know the date or time this am when asked. Speech therapy into see patient and will be back later on. Patients son in room and a great help to him. Echo done and carotid doppler done. Patient has went ama in the past, we are going to see how he does today and Dr. Butt would like him to stay through the night and patient is aware of this, he is slightly confused and may change his mind later.
--- NOTE | 2020-09-01 11:49 | OT.IP.EVAL ---
Past Medical History (Last Updated 09/01/20 @ 07:56 by Gianni Reddy MD) Body mass index (BMI) of 38.0 to 38.9 in adult (02/25/17) Depression (Acute 02/25/17) Essential hypertension (Acute 02/25/17) Mixed hyperlipidemia (Acute 08/13/17) Renal cell carcinoma (Inactive) Renal failure (02/25/17) Type 2 diabetes mellitus without complication (Acute 02/25/17) Occupational Therapy Inpatient Evaluation/Re-Eval M1 PT/OT-IP Prior Functional Status Start: 09/01/20 08:23 Freq: NEEDED Status: Active Protocol: Document 09/01/20 13:31 CGR (Rec: 09/01/20 13:58 CGR [id number]) Medical Review Prior Functional Status Medical History Reviewed Yes Diet/Fluid Consistency Regular Communication WNL with hearing aides. No deficits noted. Able to make needs known. Mobility and Gait IND at baseline. Activities of Daily Living and IADL's IND at baseline. Prior Functional Level (Other details) Pt has adjustable bed. Social History Household Members none Living Arrangements House Number of Floors (Floors) Two Floors Number of Stairs To Enter/Railing? 14 BLAKE. Entrance is on the second level with railing on the R when going up. There is a flat surface after the first 7 steps and the 7 more steps after that. Pt can stay on the data entry coordinator for all of this needs. Home Environment High Toilet,Tub/Shower Employment Status Self-Employed Additional Social History Comment Pt lives alone with a dog. Pt' s son lives 7 miles away. After d/c, his son will live with pt for a couple of days. Pt has some DME left over from his father but is unsure what he might have. 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 Diagnosis Onset Date 08/31/20 M3 OT- IP Subjective and Pain Start: 09/01/20 13:31 Freq: Status: Active Protocol: Document 09/01/20 13:31 CGR (Rec: 09/01/20 13:58 CGR [id number]) OT- Subjective Occupational Therapy Visit Type Type Initial Evaluation Visit Start Time 11:23 Visit Stop Time 11:49 Total Visit Minutes 26 Notes Pt's son present throughout session. OT Pain Assessment Pain When Pain Assessed At Rest Pain Present Pain Present Denied Pain M4 OT- IP ADL's Start: 09/01/20 13:31 Freq: Status: Active Protocol: Document 09/01/20 13:31 CGR (Rec: 09/01/20 13:58 CGR [id number]) OT [id number] Comments OT Self-Feeding Comments not meal time OT ADL-Grooming General Evaluation Grooming Ability Independent Areas Needing Assistance Face Washing Comments OT Grooming Comments standing at sink OT ADL-Oral Care General Eval Oral Care Ability Independent Areas of Assistance Brushing Teeth Comments Oral Care Comments standing at sink OT ADL-Dressing General Eval Lower Body Dressing Ability Independent Areas Needing Assistance Socks Comments OT Dressing Comments seated in chiar OT ADL-Toileting General Evaluation Toileting Ability Independent Areas Needing Assistance Manage Clothing Comments OT Toileting Comments seated on toielt OT ADL-Bathing Comments OT Bathing Comments not performed M5 OT- IP IADL's Start: 09/01/20 13:31 Freq: Status: Active Protocol: Document 09/01/20 13:31 CGR (Rec: 09/01/20 13:58 CGR [id number]) OT-Instrumental Activities of Daily Living Deficits IADL Deficits Identified Deficits Home Safety Awareness Awareness of Need for Assistance at Home Decreased Awareness Ability to Problem Solve Emergency Unable to Problem Solve Situations Medication Management Medication Management Comments Concerns for pts ability to manage medications Money Management Money Management Comments Concerns for pts ability to manage money Meal Preparation Meal Preparation Comments Concerns for pts ability to cook safely Sales Porter Sales Porter No Deficits Identified Driving Driving Comments Concerns for pts ability to safely drive. M6 OT- IP Functional Cognition Start: 09/01/20 13:31 Freq: Status: Active Protocol: Document 09/01/20 13:31 CGR (Rec: 09/01/20 13:58 CGR [id number]) Cognitive Factors Limiting Selfcare Function Cognitive Ability Level of Alertness Alert Patient Orientation Name,Place,Situation Attention Span Ability Capable of Focused Attention, Capable of Sustained Attention Ability to Follow Commands Able to Follow Multi-Step Commands Cognitive Tests SLUMS Pt particiapted in the SLUMS with a score of 16/30 putting him well into the dementia category. Pt missed the day of the week, the year, all 5 of the short term memory objects, the first money question. Pt was able to name 13 animals in 1 minute but repeated the same ones multiple times. Pt had difficutly with reversing numbers, he was able to number the clock but not to susie the time correctly. Pt answered 3 of te 4 listening comprehension questions correctly. OT- Vision and Hearing OT- Hearing Assessment OT- Hearing Assessment Hearing Impaired,Use of Hearing Aids OT- Vision Assessment Visual Acuity Glasses All The Time Visual Attentiveness WFL Occular Pursuits WFL Visual Convergence WFL Vision Assessment Comments Pt wears bifocals. PT had difficulty with perphrial vision testing but appears to have typical perphrial vision. M7 OT- IP Mobility and Balance Start: 09/01/20 13:31 Freq: Status: Active Protocol: Document 09/01/20 13:31 CGR (Rec: 09/01/20 13:58 CGR [id number]) OT- Bed Mobility Assessment Rolling Type of Rolling Roll to Right Level of Assistance Independent Supine to Sit Supine to Sit Assist Independent Sit to Supine Sit to Supine Assist Independent Scooting Scooting to Edge of Bed Independent OT-Transfer Assessment Sit to and From Stand Sit to and from Stand Independent Transfers Transfer Ability Independent Technique Transfer Destination Bed,Chair,Toilet Transfer Technique Stand Step Pivot Devices Transfer Assistive Devices Gait Belt OT- Gait Assessment Gait Gait Assistance Required: Independent Assistive Devices Assistive Device Gait Belt OT- Balance Assessment Sitting Balance and Reactions Static Sitting Balance Ability Normal Dynamic Sitting Balance Ability Good M8 OT- IP Objective Assessments Start: 09/01/20 13:31 Freq: Status: Active Protocol: Document 09/01/20 13:31 CGR (Rec: 09/01/20 13:58 CGR [id number]) OT Gross Range of Motion Upper Extremity Range of Motion Assessment Within Functional Limits OT Strength Upper Extremity Strength Assessment Within Functional Limits Comments Strength Comments R arm is slightly weaker than his L. OT- Coordination Assessment Upper Extremity Finger to Nose Test Within Functional Limits Finger Tapping Test Within Functional Limits OT-Muscle Tone Assessment Muscle Tone WNL Yes OT Sensation Assessment Edema Edema Absent M9 OT- IP Assessment and Plan Start: 09/01/20 13:31 Freq: Status: Active Protocol: Document 09/01/20 13:31 CGR (Rec: 09/01/20 13:58 CGR [id number]) OT Summary Assessment and Plan Potential Rehabilitation Potential Excellent Analytic Complexity at Evaluation Low Summary OT Impairments Functional Cognition Progress Towards Goals Safe For Discharge,Goals Met Assessment Summary Pt presents as a low complexity evaluation with confusion and found to have a R acute occipital lobe infarct . Pt is at his baseline for functional mobility and simple ADLs. However, pt presents with poor cognition. Per son, the poor cognition is not normal. Pt scored a 16/30 on the SLUMS. Goals OT-Other Goals Pt will participate in cognitive exercises. Frequency of Treatment Frequency Of Treatment Once a Day Treatment Plan OT Treatment Plan Functional Cognition Training Discharge Recommendations OT Discharge Recommendations Home with Assistance Transportation Needs at Discharge Private Vehicle
[2020-09-01] MEDS: AMLODIPINE 5 MG TABLET PO (12:39)
--- NOTE | 2020-09-01 12:55 | PT.IIE ---
Medical History (Last Updated 09/01/20 @ 07:56 by Gianni Reddy MD) Body mass index (BMI) of 38.0 to 38.9 in adult (02/25/17) Depression (Acute 02/25/17) Essential hypertension (Acute 02/25/17) Mixed hyperlipidemia (Acute 08/13/17) Renal cell carcinoma (Inactive) Renal failure (02/25/17) Type 2 diabetes mellitus without complication (Acute 02/25/17) Physical Therapy Inpatient Evaluation/Re-Eval M1 PT/OT-IP Prior Functional Status Start: 09/01/20 08:23 Freq: NEEDED Status: Active Protocol: Document 09/01/20 12:22 DE (Rec: 09/01/20 12:34 DE [id number]) Medical Review Prior Functional Status Medical History Reviewed Yes Diet/Fluid Consistency Regular Communication WNL with hearing aides. No deficits noted. Able to make needs known. Mobility and Gait IND at baseline. Activities of Daily Living and IADL's IND at baseline. Prior Functional Level (Other details) Pt has adjustable bed. Social History Household Members none Living Arrangements House Number of Floors (Floors) Two Floors Number of Stairs To Enter/Railing? 14 BLAKE. Entrance is on the second level with railing on the R when going up. There is a flat surface after the first 7 steps and the 7 more steps after that. Home Environment High Toilet,Tub/Shower Employment Status Self-Employed Additional Social History Comment Pt lives alone with a dog. Pt' s son lives 7 miles away. After d/c, his son will live with pt for a couple of days. This part of note is written by ERICA Golden and has reviewed and approved by Tito Vázquez, PT M2 PT-IP Current Condition Start: 09/01/20 08:23 Freq: NEEDED Status: Active Protocol: Document 09/01/20 12:41 HH (Rec: 09/01/20 12:54 [id number]) Physical Therapy Current Condition Current Condition Evaluation Date 09/01/20 Treatment Diagnosis TIA, AMS, memory deficits. Onset Date 08/31/20 Weight Bearing Status Weight Bearing Status Full Weight Bearing M3 PT-IP Subjective Start: 09/01/20 08:23 Freq: NEEDED Status: Active Protocol: Document 09/01/20 12:41 HH (Rec: 09/01/20 12:54 [id number]) Subjective Physical Therapy Visit Type Type Initial Evaluation Visit Start Time 11:43 Visit Stop Time 12:10 Total Visit Minutes 27 Notes co-tx with SPT Lul. Pt's son at bedside. Number of ELECTRONIC TECH Visits 0 Physical Therapy Visit Comments Patient Comments IM doing better than yesteday Therapy Pain Assessment Pain Present Pain Present Denied Pain M4 PT-IP Mobility and Gait Start: 09/01/20 08:23 Freq: NEEDED Status: Active Protocol: Document 09/01/20 12:41 HH (Rec: 09/01/20 12:54 [id number]) PT-Transfer Assessment Sit to and From Stand Sit to and from Stand Independent Equipment Transfer Assistive Device Gait Belt Orthotic/Prosthetic Devices or Brace: No Transfers Transfer Destination Chair Transfer Technique Stand Step Pivot Transfer Ability Level of Assist Independent Comments Mobility Comments Pt was in chair finishing up assessment with OT. His SLUMS score= 16/30 with significant difficulty in remembering date and time. Pt cannot recall date and time and thought he is in 1998 with his current age 65. However, he was able to talk and following command normally. He stood up without use of armrests and able to amb half of the AC unit after without AD. Pt was safe and steady the whole time but he cannot remember which room he came from. Pt also completed stair climbing multiple rounds with R rail only. Pt returned to his room after and no discomfort c/o. Call light placed within reach. Gait Assessment Gait Gait Assistance Required: Independent Distance (Feet) 250 Able to Maintain Weight Bearing Status Yes During Gait Assistive Devices Assistive Device Gait Belt Orthotic/Prosthetic Devices or Brace: No Gait Deviations General Gait Pattern Within Normal Limits Comments Gait Comments see mobility comments. Stair Climbing Assessment Evaluation Level of Assist On Stairs Standby Assistance Devices Stair Climbing Assistive Devices Right Railing Technique/Endurance Stair Climbing Direction Ascend and Descend Stair Climbing Technique Step Over Step Number of Steps Climbed 3 Query Text: Stair Climbing Set # Repetitions (reps) 4 Comments Stair Climbing Comments steady and no signs of LOB PT-Balance Assessment Sitting Balance and Reactions Static Sitting Balance Ability Normal Dynamic Sitting Balance Ability Normal Standing Balance and Reactions Static Standing Balance Ability Normal Dynamic Standing Balance Ability Normal Device Used none M5 PT-IP Objective Assessments Start: 09/01/20 08:23 Freq: NEEDED Status: Active Protocol: Document 09/01/20 12:41 (Rec: 09/01/20 12:54 [id number]) Orientation Orientation/Cognition Level of Alertness Alert Orientation Name,Place,Situation Language Function Ability No Deficits Noted,Hard of Hearing Safety Awareness Understands Safety Issues Memory Description Short Term Impaired Gross Range of Motion Upper Extremity ROM Assessment Within Functional Limits Lower Extremity ROM Assessment Within Functional Limits Strength Upper Extremity Strength Assessment Within Functional Limits Lower Extremity Strength Assessment Within Functional Limits Coordination Assessment Gross Coordination Gross Coordination WNL Sensation Assessment Sensation Gross Sensation WNL Muscle Tone Muscle Tone WNL Yes M6 PT-IP Treatment Start: 09/01/20 08:23 Freq: NEEDED Status: Active Protocol: Document 09/01/20 12:41 (Rec: 09/01/20 12:54 [id number]) Physical Therapy Treatment Education Education Provided Safety M7 PT-IP Assessment and Plan Start: 09/01/20 08:23 Freq: NEEDED Status: Active Protocol: Document 09/01/20 12:41 (Rec: 09/01/20 12:54 [id number]) PT Summary Assessment and Plan Potential Rehabilitation Potential Excellent Status of Condition at Evaluation Evolving Summary Impairments Cognition Progress Towards Goals Safe For Discharge Assessment Summary This is an evaluation only for this 69 yo male admitted to ER for TIA and AMS. Pt had a TIA in Jun but symptoms were resolved and back to baseline. Upon assessment, pt stated that His SLUMS score= 16/30 with significant difficulty in remembering date and time. Pt cannot recall date and time and thought he is in 1998 with his current age 65. However, he was able to talk and following command normally. He was also mobilize very well like his baseline. Completed amb without AD and stair climbing independently. Pt does not need skilled PT but will be beneficial to have speech and OT to improve his cognition level. pt is safe to be d/c home with son's assistance. Frequency of Treatment Frequency Of Treatment Discharge Discharge Recommendations PT Discharge Recommendations Home with Assistance Other Discharge Recommendations Pt does not need skilled PT but will be beneficial to have speech and OT to improve his cognition level. Transportation Needs at Discharge Private Vehicle
[2020-09-01] MEDS: SODIUM CHLORIDE 0.9% 1,000 ML 100 ML IV (13:46)
[2020-09-01 18:23] LABS: COVID19 -Nasal RAPID Negative (Negative)
--- NOTE | 2020-09-01 19:26 | DI.US.S_ITS ---
PROCEDURE: US CAROTID DOPPLER BI INDICATIONS: CVA TECHNIQUE: Color and pulse Doppler interrogation was performed of both carotid systems, with image documentation and velocity measurements. COMPARISON: None. FINDINGS: Stenosis calculations are based on SRU (Society of Radiologists in Ultrasound) criteria. The flow velocities and the arterial waveforms are normal within both carotid arterial systems. Atherosclerotic plaque is seen on both sides. The estimated degree of internal carotid artery stenosis is less than 50%. Antegrade flow is confirmed within both vertebral arteries. IMPRESSION: No hemodynamically significant stenosis is seen. Atherosclerotic plaque is noted bilaterally. Dictated by: Quincy Gregory M.D. on 09/01/2020 at 10:37 Approved by: Quincy Gregory M.D. on 09/01/2020 at 10:38
--- NOTE | 2020-09-01 19:26 | DI.ECHO.S_ITS ---
[place] +---------+ [facility] +---------+ : : [address] : : : : [id number] : : : : Phone: [phone]+ Echocardiogram Report + + :Name: TERRI BURRELL Study Date: 09/01/2020 Height: 70 in : :[facility] Weight: 222 lb : : Gender: Male BSA: 2.2 m2 : :: 1950 Age: 69 yrs BP: 143/77 mmHg: :Reason For Study: CVA : :Ordering Physician: Dr. Arriaza : :Filomena Performed By: Eun Luu : + + Interpretation Summary The patient was in normal sinus rhythm during the exam. The left ventricle is normal in size. The ejection fraction is estimated to be 60-65%. There is no LV thrombus. The right ventricle is normal in size and function. No significant valvular pathology seen. The IVC is of normal diameter and collapses greater than 50% with a sniff. This suggests a low right atrial pressure of 3 mm Hg. Procedure: A two-dimensional transthoracic echocardiogram with color flow and Doppler was performed. The study quality was technically adequate. Comparison is made with the echocardiogram of 08/25/2010 (images only). The patient was in normal sinus rhythm during the exam. Left Ventricle: The left ventricle is normal in size. Left ventricular wall thickness is normal. There is no ventricular septal defect visualized. There is no thrombus. The ejection fraction is estimated to be 60-65%. There are no obvious focal wall motion abnormalities noted but poor endocardial definition reduces the sensitivity for the detection of such. MV E/A: 1.2 Med Peak E' Joseph: 6.4 cm/sec E/E' med: 13.6. Right Ventricle: The right ventricle is normal in size and function. Atria: Both atria are normal in size. There is no Doppler evidence for an interatrial shunt. The thickening of interatrial septum suggests lipomatous hypertrophy. Mitral Valve: There is mild mitral annular calcification. There is trace mitral regurgitation. Aortic Valve: The aortic valve is normal in structure and function. There is no aortic valve stenosis. No aortic regurgitation is present. Tricuspid Valve: The tricuspid valve is normal. Pulmonary artery pressures cannot be estimated because of the lack of a measurable TR jet velocity but the IVC suggests a CVP of around 3 mmHg. There is trace tricuspid regurgitation. Pulmonic Valve: The pulmonic valve is not well seen, but is grossly normal. There is trace pulmonic regurgitation. Great Vessels: The aortic root is normal size. The ascending aorta is normal in size. The aortic arch could not be visualized. The IVC is of normal diameter and collapses greater than 50% with a sniff. This suggests a low right atrial pressure of 3 mm Hg. Pericardium/ Pleura There is no pericardial effusion. There is no pleural effusion. MMode/2D Measurements & Calculations LVIDd: 4.9 cm LVOT diam: 2.0 cm LVIDs: 3.4 cm Ao root diam: 3.1 cm FS: 31.5 % asc Aorta Diam: 2.8 cm EPSS: 0.60 cm IVSd: 1.2 cm LVPWd: 0.77 cm LV alcaraz. diameter/BSA (cm/m^2): 2.3 LV sys. diameter/BSA (cm/m^2): 1.5 LA A2 area: 19.2 cm2 RA long axis: 5.2 cm LA A4 area: 18.1 cm2 RA area: 17.1 cm2 LA length (vol): 6.1 cm RA vol: 48.1 ml LA vol: 48.5 ml RA : 22.0 ml/m2 LA vol index: 22.2 ml/m2 IVC diam: 1.2 cm RVD1 (basal): 3.4 cm RVD2 (mid): 2.6 cm TAPSE: 2.3 cm Doppler Measurements & Calculations Ao V2 max: 176.4 cm/sec LVOT Max Joseph: 106.8 cm/sec Ao V2 mean: 126.9 cm/sec LV V1 max P.6 mmHg Ao max P.5 mmHg LV V1 VTI: 19.8 cm Ao mean P.3 mmHg NIDA(I,D): 1.7 cm2 Ao V2 VTI: 36.4 cm NIDA(V,D): 1.9 cm2 sev ratio: 0.54 NIDA indexed to BSA (cm^2/m^2): 0.80 MV E max joseph: 86.9 cm/sec PA V2 max: 104.1 cm/sec MV A max joseph: 73.8 cm/sec PA V2 mean: 74.5 cm/sec MV E/A: 1.2 PA mean P.4 mmHg Med Peak E' Joseph: 6.4 cm/sec PA Accel Time: 0.06 sec E/E' med: 13.6 Lat Peak E' Joseph: 10.3 cm/sec E/E' lat: 8.5 E/e' average: 11.0 MV dec time: 0.24 sec MV P1/2t: 69.7 msec MV P1/2t max joseph: 86.7 cm/sec SV(LVOT): 63.4 ml MVA(P1/2t): 3.2 cm2 Reading Physician:02:16 PM
[2020-09-01] MEDS: ATORVASTATIN 20 MG TABLET PO (21:33)
[2020-09-02 00:34] VITALS: BP 109/58; PULSE 66; RESP 18; TEMP 36.3; O2SAT 96
[2020-09-02] MEDS: SODIUM CHLORIDE 0.9% 1,000 ML 100 ML IV (00:51)
--- NOTE | 2020-09-02 01:15 | PC.NURSE ---
Pt. sound asleep received Tylenol & Benadryl @ HS. But he roused & follow command, denies any MENESES or CP. Will assess NIH when wakes up. Will cont. POC & monitor.
[2020-09-02 04:00] VITALS: BP 103/49; PULSE 67; RESP 20; TEMP 36.3; O2SAT 98
[2020-09-02 05:25] LABS: Add Manual Diff / Slide Review NO; Basophils Absolute Auto 100 /uL (0-100); Basophils Percent Auto 0.6 % (0-2); Eosinophils Absolute Auto 200 /uL (0-450); Eosinophils Percent Auto 2.2 % (2-4); Hematocrit 41.8 % (41-53); Hemoglobin 13.8 g/dL (13.5-17.5); Lymphocytes Absolute Auto 2400 /uL (1100-4500); Lymphocytes Percent Auto 28.5 % (25-40); Mean Corpuscular Hemoglobin 29.9 PG (26-34); Mean Corpuscular Volume 90.7 fL (80-100); Monocytes Absolute Auto 600 /uL (0-900); Monocytes Percent Auto 6.6 % (3-14); Neutrophils Absolute Auto 5200 /uL (1500-7000); Neutrophils Percent Auto 62.1 % (50-75); Platelet Count 197 X10^3/uL (150-400); Red Blood Cell Count 4.62 X10^6/uL (4.5-5.9); Red Cell Distribution Width 13.8 % (11.6-14.8); White Blood Cell Count 8.4 X10^3/uL (4.5-11.0)
[2020-09-02 05:32] LABS: BUN Creatinine Ratio 18.2 (6-22); Blood Urea Nitrogen 29 mg/dL (9-20); Carbon Dioxide 24 mmol/L (22-32); Chloride 106 mmol/L (98-107); Estimated Glomerular Filt Rate 43.6 mL/min (>60); Glucose 197 mg/dL (80-110); HEMOLYSIS < 15 (0-50); Potassium 4.9 mmol/L (3.4-5.1); Sodium 136 mmol/L (137-145)
--- NOTE | 2020-09-02 05:49 | PC.NURSE ---
Dr. Reddy called via answering service to report that pt. pulled his IV access this morning. Dr. Reddy called back orders received not restart IV access & to discontinue his telemetry. Also reported potassium level this morning was 4.9. Will enter & implement orders.
--- NOTE | 2020-09-02 06:47 | PC.NURSE ---
Pt. denies any MENESES, CP & other discomfort. Slept well last night & showered this morning. Looking out the window & son reports he's less confuse this morning. Will report to day RN.
[2020-09-02] MEDS: ASPIRIN EC 325 MG TABLET PO (09:34)
[2020-09-02] MEDS: TAMSULOSIN 0.4 MG CAPSULE PO (09:34)
[2020-09-02] MEDS: AMLODIPINE 5 MG TABLET PO (09:34)
[2020-09-02] MEDS: INSULIN GLARGINE 100 UNIT/ML 3ML PEN 50 UNIT SUBCUT (09:34)
[2020-09-02] MEDS: ENOXAPARIN 40 MG/0.4 ML SYRINGE SUBCUT (09:34)
[2020-09-02 09:38] VITALS: BP 129/58; PULSE 69; RESP 17; TEMP 36.6; O2SAT 97
--- NOTE | 2020-09-02 10:57 | PM.DS.1 ---
History of Present Illness History of Present Illness Date Patient Seen: 09/02/20 Time Patient Seen: 10:58 Chief complaint: possible stroke, memory loss, facial droop Narrative: 69-year-old male patient seen and evaluated in the emergency department patient has a history which includes renal cell carcinoma of the kidney depression hypertension stage III kidney failure insulin-dependent diabetes hyperlipidemia and recent cerebrovascular accident in June 2008. Patient lives at home independently in his son lives nearby. Patient and son communicated last evening by phone and things seem to be going well. When patient son visited this morning patient had mental status changes and there was some concern. Patient was found to be a little bit confused had a hard time remembering things and was just not acting himself. They did not appreciate any facial muscle weakness difficulty with hands difficulty with speech or talking nonsense of LEEP. He did not nursing problems with gait or balance. Due to his recent cerebrovascular accident patient's family became concerned and brought him to the emergency department. Emergency Department evaluation the emergency room physician says patient was confused and disoriented. Was unsure of date time and occasionally place but he would remember with cues and reminders. Had fairly good remote history remember being in the hospital previously with a stroke and other history he was good at. After talking to the patient about the date and time and where was outpatient would be re-evaluated in he be forgetful with some of these items. Patient had repeat laboratory testing CT scan shows previous cerebrovascular accident visualized in June without acute ischemic changes. Review of his records last time hand imaging was also done and recent laboratory tests. On my evaluation patient states he is feeling a little bit better. I do not see any obvious gross neurological deficits. Says he feels pretty good but knows he would like to get worked up in figure out what is going on. He does remember that he has [facility] he is a little sketchy on the date and time. He has good remote history. {from Dr. Butt's H&P, 08/31/20} Discharge Providers Provider Date of admission: 08/31/20 18:41 Discharge Date: 09/02/20 Primary care physician: Noe Lynn MD Consults: 08/31/20 19:26 Consult to Discharge Planning Routine Comment: Consult to Discharge Planning Routine Comment: Consult to Occupational Therapy Evaluate & Treat Comment: Physician Instructions: Evaluate and treat Consult to Occupational Therapy Evaluate & Treat Comment: Physician Instructions: Evaluate and treat Consult to Physical Therapy Evaluate & Treat Comment: Physician Instructions: Evaluate and Treat Consult to Physical Therapy Evaluate & Treat Comment: Physician Instructions: Evaluate and Treat Consult to Speech Therapy Evaluate & Treat Comment: Physician Instructions: Evaluate and treat Discharge provider: Gianni Reddy MD Summary Hospital Course Discharge Diagnosis: 1. Acute thromboembolic CVA 2. 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 Type 2 diabetes on long-term insulin 4. Essential hypertension 5. Mixed hyperlipidemia 6. Visual field loss due to subacute thromboembolic CVA 7. Distant history renal cell carcinoma kidney status post nephrectomy Hospital Course: Patient was admitted to the hospital via the emergency department as above. He had had an event back in June where he had sudden onset vision change. Found to have a CVA at that time. Patient it appears declined admission. He was evaluated as an outpatient by his PCP Dr. Lynn and appropriate studies including echocardiography and carotid ultrasound ordered. However before these could be obtained patient returned with acute symptoms of confusion and memory issues. His issues primarily seem to be memory related difficulty remembering days times people he is involved with etcetera. By report his visual difficulties had significantly improved although has not completely vanished CT scan done as part of his initial workup showed evidence of his old prior CVA from June 2020 with evidence of probable progression. Patient previously refused MRI this time he underwent MRI which showed acute infarcts of right occipital lobe and subacute infarcts left occipital lobe with very early petechial hemorrhage type changes Carotid ultrasound essentially unremarkable as was echocardiogram. Patient had no dysrhythmias on cardiac telemetry while hospitalized Patient seen in consultation by Physical therapy who did not find any particular physical defects. Also seen by occupational therapy who readily identified is cognitive defects. Please see specific occupational therapy notes for details. Vital signs remained stable. Blood sugars were not out of control although poorly controlled during this hospitalization. By the morning of September 02 he was felt to be stable for discharge home into the care of his son who will be with him or someone from the family will be with him 16/06 given his significant cognitive issues Will plan for intensive outpatient issues directed that his cognition either with speech or occupational therapy depending on facility Patient also be started on statin therapy which was not taking prior to this admission as well as an aspirin a day which he was also not taking prior to this admission. He will have his gemfibrozil discontinued in favor of the statin therapy. In addition patient as an outpatient was taking both an BETHANY-inhibitor and ARB. Generally these should not be used together and his BETHANY-inhibitor dose was extremely low so I will discontinue that in favor of continuing with the ARB. Patient will be seen in close follow-up by his PCP Dr. Lynn, will also help arrange for outpatient therapies as above Exam Vital Signs (past 8 hours): - 09/02/20 04:00 09/02/20 09:38 Temperature 97.3 F L 97.8 F Pulse Rate 67 69 Respiratory Rate 20 17 Blood Pressure 103/49 L 129/58 L Pulse Oximetry 98 97 Oxygen Delivery Method Room Air Oxygen Flow Rate 0 Narrative Exam Narrative: Elderly male in no obvious distress sitting on the edge of his bed HEENT-unremarkable, normocephalic atraumatic Neck-no lymphadenopathy no bruits Lungs-clear anteriorly and posteriorly no wheezes no crackles good breath sounds Heart-regular rate and rhythm, no murmur, rub, or gallop. normal S1-S2 Abdomen-positive bowel tones, soft, nontender, nondistended, no hepatosplenomegaly, no masses palpable Objective Labs Result Diagrams: 09/02/20 05:05 09/02/20 05:05 Labs: Laboratory Results - last 24 hr 09/01/20 09/02/20 09/02/20 16:44 05:05 05:05 WBC 8.4 RBC 4.62 Hgb 13.8 Hct 41.8 MCV 90.7 MCH 29.9 MCHC 33.0 RDW 13.8 Plt Count 197 Neut % (Auto) 62.1 Lymph % (Auto) 28.5 [place] % (Auto) 6.6 Eos % (Auto) 2.2 Baso % (Auto) 0.6 Neut # (Auto) 5200 Lymph # (Auto) 2400 [place] # (Auto) 600 Eos # (Auto) 200 Baso # (Auto) 100 Sodium 136 L Potassium 4.9 Chloride 106 Carbon Dioxide 24 BUN 29 H Creatinine 1.59 H Estimated GFR 43.6 L BUN/Creatinine Ratio 18.2 Glucose 197 H Calcium 9.0 COVID-19 PCR Negative Discharge Assessment & Plan Assessment and Plan Plan of Treatment: As above, patient will need intensive outpatient skilled therapies directed that his new memory/cognitive issues. Patient also have gemfibrozil discontinued in favor of atorvastatin and he will be started on anti thrombotic therapy with an 81 mg aspirin daily. Larger dose aspirin and or other therapies not initiated because of small petechial hemorrhage seen on MRI and concerns for transformation to hemorrhagic CVA. Patient will also have his lisinopril discontinued but continue on his losartan as above. Discharge Plan Discharge Plan Patient Disposition: Home Discharge comment: Will need outpatient ST for cognitive issues Discharge orders & Medications Prescriptions: New atorvastatin [Lipitor] 20 mg Tablet 20 mg PO BEDTIME Qty: 90 RF: 3 aspirin [Aspirin Low Dose] 81 mg tablet,delayed release (DR/EC) 81 mg PO DAILY Qty: 90 RF: 3 Continued Glucose: Home Monitor Qty: 1 RF: 0 Syringes: 1cc Insulin Syringes with Dinosaur SEE INSTRUCTIONS Qty: 450 RF: 3 [INSULIN PEN NEEDLES] SQ 5XD Qty: 450 RF: 3 losartan [Cozaar] 50 mg tablet 50 mg PO QDAY Qty: 90 RF: 3 tamsulosin [Flomax] 0.4 mg capsule 0.4 mg PO QDAY Qty: 90 RF: 3 Lantus Solostar U-100 Insulin 100 unit/mL (3 mL) insulin pen 50 unit SUBCUT DAILY Qty: 15 RF: 8 Humalog U-100 Insulin 100 unit/mL cartridge See Rx Instructions subcut TIDAC Qty: 15 RF: 9 OneTouch Verio test strips Strip See Rx Instructions .ROUTE .COMPLEX Qty: 100 RF: 3 testosterone cypionate 100 mg/mL oil 150 mg IM EVERY 2 WEEKS Qty: 4 RF: 5 Changed bupropion HCl 150 mg tablet sustained-release 12 hr 150 mg PO BID Qty: 60 RF: 5 Discontinued gemfibrozil 600 mg tablet 600 mg PO BIDAC Qty: 180 RF: 3 lisinopril 2.5 mg tablet 2.5 mg PO QDAY Qty: 90 RF: 3 Follow up/Referrals: Noe Lynn MD [Primary Care Provider] - 2 Weeks Diet/Activity/Treatments Diet: Carb-consistent/Diabetic Discharge Data Primary Care Provider: Noe Lynn
--- NOTE | 2020-09-02 11:40 | CM.DPC ---
DCP Discharge Home Per MD, pt is medically stable to d/c home today with son support and no identified barriers to discharge. Per PT, pt mobilizing well and no physical therapy needs and safe for home. Per OT, pt scored a 16/30 on the SLUMS assessment yesterday and 16/30 on the MOKA today and shows significant cognition and memory issues which are a safety concern for living at home alone. OT recommending ongoing OT/ST for cognition therapy as outpt after d/c. 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 SW discussed OT recommendation and how to get a referral from PCP and son encouraging and explaining further to pt the importance of following through on recommendations towards goal of remaining independent at home alone and pt agreeable and acknowledges understanding. 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 SW also provided the [employer] Guide[employer] for additional resources and discussed private pay caregiver in case needed after d/c. Pt and son agreeable to d/c home today. Plan: Patient to d/c home via son POV and son to stay with pt for additional assist and outpt OT. No further SW needs at this time. LYNNE Arellano
--- NOTE | 2020-09-02 12:53 | PC.NURSE ---
Discharge instructions and home care handouts reviewed with patient and his son. They state understanding and have no further questions or concerns at this time. Patient (with the help of his son) will call Dr. Lynn's office on Friday to schedule/confirm follow up appointment to be seen within two weeks and to ensure outpatient therapy is scheduled. Patient instructed to seek emergent care for emergency or return or worsening of symptoms. Escorted out via wheelchair by SOLE PAINTER and his son to be discharged to home.
== END 2020-09-02 12:56 | disposition home or self-care (01) | DRG 66 ==
LOC: ED 18:41 → AC 09-01 08:28
PROVIDERS: Admitting Provider Family Medicine; Emergency Provider Emergency Medicine; PCP Family Medicine; Visit Provider Family Medicine
DX: I63.9 Cerebral infarction, unspecified (principal); R40.2362 Coma scale, best motor response, obeys commands, at arrival to emergency department; R40.2142 Coma scale, eyes open, spontaneous, at arrival to emergency department; R40.2242 Coma scale, best verbal response, confused conversation, at arrival to emergency department; E11.22 Type 2 diabetes mellitus with diabetic chronic kidney disease; H53.40 Unspecified visual field defects; I12.9 Hypertensive chronic kidney disease with stage 1 through stage 4 chronic kidney disease, or unspecified chronic kidney disease; N18.30 Chronic kidney disease, stage 3 unspecified; R41.3 Other amnesia; R29.810 Facial weakness; H54.7 Unspecified visual loss; F32.9 Major depressive disorder, single episode, unspecified; E78.2 Mixed hyperlipidemia; G31.84 Mild cognitive impairment of uncertain or unknown etiology; Z79.4 Long term (current) use of insulin; Z85.528 Personal history of other malignant neoplasm of kidney; Z87.891 Personal history of nicotine dependence
CPT/HCPCS: 36415; 70450; 70548; 70551; 70553; 80048; 80053; 80320; 82140; 82962; 83690; 85025; 85610; 85730; 87635; 92523; 93005; 93306; 93880; 97129; 97130; 97161; 97165; 99223; 99232; 99238; 99284; A9579; J1650; J2060

== ENCOUNTER → 2020-09-11 17:09 | Outpatient (CLI) | payer MEDICARE, OTHER, SELFPAY ==
[2020-08-31 19:30] VITALS: BMI 31.8
[2020-09-11 18:22] LABS: Hemoglobin A1C% w Est Avg Glu 9.5 % (4.0-6.0)
== END ==
PROVIDERS: PCP Family Medicine; Referring Provider Family Medicine; Visit Provider Family Medicine
DX: E11.9 Type 2 diabetes mellitus without complications (principal)
CPT/HCPCS: 36415; 83036

== ENCOUNTER → 2020-11-08 12:15 | Outpatient (CLI) | payer MEDICARE, OTHER, SELFPAY ==
[2020-09-21 16:03] VITALS: BMI 31.8
[2020-11-08 12:38] LABS: Hemoglobin A1C% w Est Avg Glu 10.4 % (4.0-6.0)
[2020-11-08 12:44] LABS: BUN Creatinine Ratio 14.8 (6-22); Blood Urea Nitrogen 27 mg/dL (9-20); Calcium 9.4 mg/dL (8.4-10.2); Carbon Dioxide 30 mmol/L (22-32); Chloride 104 mmol/L (98-107); Estimated Glomerular Filt Rate 37.1 mL/min (>60); Glucose 352 mg/dL (80-110); HEMOLYSIS < 15 (0-50); Potassium 5.6 mmol/L (3.4-5.1); Sodium 138 mmol/L (137-145)
== END ==
PROVIDERS: PCP Family Medicine; Referring Provider Family Medicine; Visit Provider Family Medicine
DX: E11.9 Type 2 diabetes mellitus without complications (principal)
CPT/HCPCS: 36415; 80048; 83036

== ENCOUNTER → 2021-03-05 10:57 | Outpatient (CLI) | payer MEDICARE, OTHER, SELFPAY ==
[2020-09-21 16:03] VITALS: BMI 31.8
[2021-03-05 11:22] LABS: Alanine Aminotransferase 29 IU/L (<50); Albumin 3.7 g/dL (3.5-5.0); Albumin Globulin Ratio 1.4 (1.0-2.8); Alkaline Phosphatase 269 U/L (38-126); Aspartate Aminotransferase 28 IU/L (17-59); BUN Creatinine Ratio 22.6 (6-22); Bilirubin Total 0.6 mg/dL (0.2-1.3); Blood Urea Nitrogen 42 mg/dL (9-20); Calcium 8.8 mg/dL (8.4-10.2); Carbon Dioxide 22 mmol/L (22-32); Chloride 94 mmol/L (98-107); Estimated Glomerular Filt Rate 36.3 mL/min (>60); Globulin 2.7 g/dL (1.7-4.1); HEMOLYSIS 16 (0-50); Sodium 125 mmol/L (137-145); Total Protein 6.4 g/dL (6.3-8.2)
[2021-03-05 12:21] LABS: Potassium 5.8 mmol/L (3.4-5.1)
[2021-03-05 12:23] LABS: Glucose 875 mg/dL (80-110)
[2021-03-05 12:32] LABS: Hemoglobin A1C% w Est Avg Glu > 14.0 % (4.0-6.0)
== END ==
PROVIDERS: PCP Family Medicine; Visit Provider Family Medicine
DX: E11.9 Type 2 diabetes mellitus without complications (principal); Z79.4 Long term (current) use of insulin
CPT/HCPCS: 80053; 83036